=== PATIENT | female | born 2000 | race Caucasian/White ===

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

== ENCOUNTER 2021-01-10 21:33 | Emergency (ER) | payer OTHER, SELFPAY ==
[2021-01-10] VITALS (7 sets, daily range): BP systolic 134–154; BP diastolic 63–83; PULSE 77–110; RESP 16–28; TEMP 37.5–39.6; O2SAT 96–99; BMI 32.5
--- NOTE | 2021-01-10 22:02 | DI.RAD.S_ITS ---
PROCEDURE: XR CHEST 1V INDICATIONS: suspected sepsis TECHNIQUE: One view of the chest was acquired. COMPARISON: [facility], , CHEST 2 VIEW, 11/08/2010, 15:57. FINDINGS: Surgical changes and devices: None. Lungs and pleura: Minimal streaky bibasilar opacities without focal consolidation. No pleural effusions or pneumothorax. Mediastinum: Mediastinal contours appear normal. Heart size is normal. Bones and chest wall: No suspicious bony lesions. Overlying soft tissues appear unremarkable. IMPRESSION: Minimal streaky bibasilar opacities likely representing atelectasis. Early developing airspace disease not excluded. No focal consolidations. Dictated by: Keven Sandoval M.D. on 01/10/2021 at 22:16 Approved by: Keven Sandoval M.D. on 01/10/2021 at 22:17
[2021-01-10 22:28] LABS: COVID19 -Nasal RAPID Negative (Negative)
[2021-01-10] MEDS: KETOROLAC 30 MG/ML VIAL 15 MG IV (22:47)
[2021-01-10] MEDS: SODIUM CHLORIDE 0.9% 1,000 ML 1000 ML IV (22:47)
[2021-01-10 22:53] LABS: Hematocrit 37.3 % (36-46); Hemoglobin 12.8 g/dL (12.0-16.0); Mean Corpuscular HGB Conc 34.4 % (30-36); Mean Corpuscular Hemoglobin 29.3 PG (26-34); Mean Corpuscular Volume 85.1 fL (80-100); Platelet Count 135 X10^3/uL (150-400); Red Blood Cell Count 4.38 X10^6/uL (4.0-5.2); Red Cell Distribution Width 12.8 % (11.6-14.8); White Blood Cell Count 3.9 X10^3/uL (4.5-11.0)
[2021-01-10 22:55] LABS: Add Manual Diff / Slide Review YES
[2021-01-10 22:57] LABS: Alanine Aminotransferase 115 IU/L (<35); Albumin 3.9 g/dL (3.5-5.0); Albumin Globulin Ratio 1.3 (1.0-2.8); Alkaline Phosphatase 65 U/L (38-126); Aspartate Aminotransferase 195 IU/L (14-36); BUN Creatinine Ratio 9.6 (6-22); Bilirubin Total 0.6 mg/dL (0.2-1.3); Blood Urea Nitrogen 8 mg/dL (7-17); Calcium 8.7 mg/dL (8.4-10.2); Carbon Dioxide 26 mmol/L (22-32); Chloride 101 mmol/L (98-107); Estimated Glomerular Filt Rate > 60.0 mL/min (>60); Globulin 2.9 g/dL (1.7-4.1); Glucose 114 mg/dL (70-100); HEMOLYSIS < 15 (0-50); Lipase 46 U/L (23-300); Potassium 3.4 mmol/L (3.4-5.1); Sodium 133 mmol/L (137-145); Total Protein 6.8 g/dL (6.3-8.2)
[2021-01-10 22:58] LABS: Lactate (Lactic Acid) 1.2 mmol/L (0.7-2.1)
[2021-01-10 23:12] LABS: Neutrophils Absolute Manual 1716 /uL (3000-5900); RBC Morphology Normal Morphology; Total Cells Counted 100
[2021-01-10 23:14] LABS: Procalcitonin 0.41 ng/mL (<0.5)
--- NOTE | 2021-01-10 23:30 | ED_ITS ---
HPI - General Adult General Chief complaint: Fever Stated complaint: fever, headache, swollen eyes Time Seen by Provider: 01/10/21 22:43 Source: patient and family Mode of arrival: Ambulatory Limitations: no limitations History of Present Illness HPI narrative: 20-year-old woman with no significant medical history notes that 3 days ago she had the abrupt onset of fever to 103, noted that her eyes were puffy with injected sclera, she was diaphoretic had a sore throat with significant adenopathy complains of back pain body aches chest tightness when her eyes were burning she was feeling dizzy she notes that over the last couple of days she has been more sensitive to food. She is hungry but it tends to make her nauseated she has not vomited. She had diarrhea that was just watery today but then a formed stool later this evening. She describes being significantly weak. She notes a couple of weeks ago she had 2 days of dysuria but no recent dysuria or vaginal discharge type symptoms. She has never had similar findings and has not been around obviously ill people. Related Data Home Medications Medication Instructions Recorded Confirmed ibuprofen 200 mg tablet (Advil) 200 mg PO PRN #0 06/25/11 06/05/18 ferrous sulfate 325 mg (65 mg 325 mg PO DAILY tab 02/19/18 06/05/18 iron) tablet Allergies Allergy/AdvReac Type Severity Reaction Status Date / Time No Known Drug Allergies Allergy Verified 01/10/21 21:57 Review of Systems Review of Systems Narrative: Remainder of complete review of systems is otherwise unremarkable except for that included in the HPI. Patient History Social History Smoking Status: Never smoker Smoking Status: Never smoker alcohol intake frequency: holidays/special occasions only Substance Use Type: marijuana Exam Narrative Exam Narrative: General: Acutely hearing in mild distress. Able to give a complete and coherent history. Well-nourished well-developed HEENT: Moist mucous membranes, reactive pupils, cervical adenopathy but no nuchal rigidity. Eyelids are somewhat puffy and sclera are injected. Tympanic membranes are normal and tonsils are full with erythema and discharge no peritonsillar abscesses appreciated. Neck: Anterior cervical adenopathy Respiratory: Lungs are clear to auscultation, no wheezing no rales no rhonchi. Full and symmetrical air movement Cardiac: Regular rate and rhythm no murmurs no bruits Abdomen: Soft, nontender, good bowel tones, mild discomfort with flank palpation that no overt flank pain. Skin: Flushed but no rashes Neurologic: Grossly neurologically intact with no obvious asymmetries or abnormalities Extremities: No trauma, well perfused Psych: Cooperative, appropriate insight and affect Initial Vital Signs Initial Vital Signs: Vital Signs Temperature 103.2 F H 01/10/21 21:57 Pulse Rate 110 H 01/10/21 21:57 Respiratory Rate 22 01/10/21 21:57 Blood Pressure 154/83 H 01/10/21 21:57 Pulse Oximetry 97 01/10/21 21:57 Course Orders Ordered: ED Orders 01/10/21 22:00 COVID19 -Nasal swab/Pre-Proc Stat 01/10/21 22:02 XR chest 1V Stat EKG-12 Lead Stat RT Consult Eval and Treat Now 01/10/21 22:30 Complete Blood Count AUTO DIFF Stat Comprehensive Metabolic Panel Stat Lactate (Lactic Acid) Stat Lipase Stat Procalcitonin Stat 01/10/21 22:40 Blood Culture Stat 01/11/21 00:02 Throat Culture Stat 01/11/21 00:05 Hepatitis Acute Panel Stat Monotest Stat 01/11/21 00:52 Influenza A & B (PCR) Stat Discontinued Medications Acetaminophen (Acetaminophen 325 Mg Tablet) 975 mg PO NOW ONE Stop: 01/11/21 00:06 Last Admin: 01/11/21 00:26 Dose: 975 mg Documented by: SONG Sodium Chloride (Normal Saline 0.9%) 1,000 mls @ 1,000 mls/hr IV BOLUS ONE Stop: 01/10/21 23:01 Last Infusion: 01/10/21 23:44 Dose: 0 mls/hr Documented by: Admin: 01/10/21 22:47 Dose: 1,000 mls/hr Documented by: TYLER Sodium Chloride (Normal Saline 0.9%) 1,000 mls @ 1,000 mls/hr IV BOLUS ONE Stop: 01/11/21 01:03 Last Infusion: 01/11/21 01:06 Dose: 0 mls/hr Documented by: Admin: 01/11/21 00:26 Dose: 1,000 mls/hr Documented by: SONG Ketorolac Tromethamine (Ketorolac 30 Mg/Ml Vial) 15 mg IV NOW ONE Stop: 01/10/21 22:44 Last Admin: 01/10/21 22:47 Dose: 15 mg Documented by: TYLER Vital Signs Vital signs: Vital Signs - 8 hr 01/10/21 21:57 01/10/21 22:22 01/10/21 22:30 Temperature 103.2 F H Pulse Rate 110 H 102 H 89 Respiratory Rate 22 22 23 Blood Pressure 154/83 H Pulse Oximetry 97 97 97 01/10/21 22:40 01/10/21 23:00 01/10/21 23:30 Temperature 99.5 F Pulse Rate 90 87 77 Respiratory Rate 16 28 H 25 H Blood Pressure 141/75 H 139/69 134/63 Pulse Oximetry 99 96 98 01/10/21 23:43 01/11/21 00:00 01/11/21 00:12 Temperature 99.5 F Pulse Rate 86 101 H Respiratory Rate 22 25 H Blood Pressure 138/71 150/76 H Pulse Oximetry 97 97 01/11/21 00:26 01/11/21 00:30 Temperature 100.6 F H Pulse Rate 78 Respiratory Rate 22 Blood Pressure 131/68 Pulse Oximetry 97 Medical Decision Making Lab Data Result diagrams: 01/10/21 22:30 01/10/21 22:30 Labs: Lab Results 01/10/21 01/10/21 01/10/21 Range/Units 22:00 22:30 22:30 WBC 3.9 L (4.5-11.0) X10^3/uL RBC 4.38 (4.0-5.2) X10^6/uL Hgb 12.8 (12.0-16.0) g/dL Hct 37.3 (36-46) % MCV 85.1 (80-100) fL MCH 29.3 (26-34) PG MCHC 34.4 (30-36) % RDW 12.8 (11.6-14.8) % Plt Count 135 L (150-400) X10^3/uL Neut % (Auto) Not Reportable Lymph % (Auto) Not Reportable [place] % (Auto) Not Reportable Eos % (Auto) Not Reportable Baso % (Auto) Not Reportable Lymph # (Auto) Not Reportable [place] # (Auto) Not Reportable Baso # (Auto) Not Reportable Total Counted 100 Seg Neutrophils % 44.0 (38-70) % Lymphocytes % (Manual) 47.0 H (25-45) % Atypical Lymphs % 2.0 H ( - 0) % Monocytes % (Manual) 5.0 (2-11) % Eosinophils % (Manual) 1.0 L (2-4) % Basophils % (Manual) 1.0 (0-1) % Neutrophils # (Manual) 1716 L (5075-5832) /uL RBC Morphology Normal morphology Sodium 133 L (137-145) mmol/L Potassium 3.4 (3.4-5.1) mmol/L Chloride 101 (98-107) mmol/L Carbon Dioxide 26 (22-32) mmol/L BUN 8 (7-17) mg/dL Creatinine 0.83 (0.52-1.04) mg/dL Estimated GFR > 60.0 (>60) mL/min BUN/Creatinine Ratio 9.6 (6-22) Glucose 114 H (70-100) mg/dL Lactate (0.7-2.1) mmol/L Calcium 8.7 (8.4-10.2) mg/dL Total Bilirubin 0.6 (0.2-1.3) mg/dL AST 195 H (14-36) IU/L ALT 115 H (<35) IU/L Alkaline Phosphatase 65 (38-126) U/L Total Protein 6.8 (6.3-8.2) g/dL Albumin 3.9 (3.5-5.0) g/dL Globulin 2.9 (1.7-4.1) g/dL Albumin/Globulin Ratio 1.3 (1.0-2.8) Lipase 46 (23-300) U/L Procalcitonin 0.41 (<0.5) ng/mL SARS-CoV-2 (PCR) Negative (Negative) Monoscreen (Negative) Influenza A (RT-PCR) (NEGATIVE) Influenza B (RT-PCR) (NEGATIVE) 01/10/21 01/10/21 01/11/21 Range/Units 22:30 22:30 00:52 WBC (4.5-11.0) X10^3/uL RBC (4.0-5.2) X10^6/uL Hgb (12.0-16.0) g/dL Hct (36-46) % MCV (80-100) fL MCH (26-34) PG MCHC (30-36) % RDW (11.6-14.8) % Plt Count (150-400) X10^3/uL Neut % (Auto) Lymph % (Auto) [place] % (Auto) Eos % (Auto) Baso % (Auto) Lymph # (Auto) [place] # (Auto) Baso # (Auto) Total Counted Seg Neutrophils % (38-70) % Lymphocytes % (Manual) (25-45) % Atypical Lymphs % ( - 0) % Monocytes % (Manual) (2-11) % Eosinophils % (Manual) (2-4) % Basophils % (Manual) (0-1) % Neutrophils # (Manual) (4093-2416) /uL RBC Morphology Sodium (137-145) mmol/L Potassium (3.4-5.1) mmol/L Chloride (98-107) mmol/L Carbon Dioxide (22-32) mmol/L BUN (7-17) mg/dL Creatinine (0.52-1.04) mg/dL Estimated GFR (>60) mL/min BUN/Creatinine Ratio (6-22) Glucose (70-100) mg/dL Lactate 1.2 (0.7-2.1) mmol/L Calcium (8.4-10.2) mg/dL Total Bilirubin (0.2-1.3) mg/dL AST (14-36) IU/L ALT (<35) IU/L Alkaline Phosphatase (38-126) U/L Total Protein (6.3-8.2) g/dL Albumin (3.5-5.0) g/dL Globulin (1.7-4.1) g/dL Albumin/Globulin Ratio (1.0-2.8) Lipase (23-300) U/L Procalcitonin (<0.5) ng/mL SARS-CoV-2 (PCR) (Negative) Monoscreen Negative (Negative) Influenza A (RT-PCR) Flu a negative (NEGATIVE) Influenza B (RT-PCR) Flu b negative (NEGATIVE) Point of Care Testing Test Results Negative Rapid Strep A Negative Urine Dip Bedside Urine Glucose Negative Bedside Urine Bilirubin - Negative Bedside Urine Ketone - Negative Urine Specific [place] 1.01 Bedside Urine Occult Blood - Negative Bedside Urine pH 6 Bedside Urine Protein - Negative Bedside Urine Urobilinogen - Negative Bedside Urine Nitrite - Negative Bedside Urine Leukocytes - Negative Esterase Point of care testing: Point of Care Testing Test Results Negative Rapid Strep A Negative Urine Dip Bedside Urine Glucose Negative Bedside Urine Bilirubin - Negative Bedside Urine Ketone - Negative Urine Specific [place] 1.01 Bedside Urine Occult Blood - Negative Bedside Urine pH 6 Bedside Urine Protein - Negative Bedside Urine Urobilinogen - Negative Bedside Urine Nitrite - Negative Bedside Urine Leukocytes - Negative Esterase Imaging Data Chest x-ray: Radiologist's Impression: FINDINGS:? ? Surgical changes and devices:? None.? ? Lungs and pleura:? Minimal streaky bibasilar opacities without focal consolidation.? No pleural effusions or pneumothorax.? ? Mediastinum:? Mediastinal contours appear normal.? Heart size is normal.? ? Bones and chest wall:? No suspicious bony lesions.? Overlying soft tissues appear unremarkable.? ? IMPRESSION:? Minimal streaky bibasilar opacities likely representing atelectasis.? Early developing airspace disease not excluded.? No focal consolidations. ? ? Dictated by: Keven Sandoval M.D. on 01/10/2021 at 22:16? ?? MDM Narrative Medical decision making narrative: 20-year-old woman with fevers scleral injection general malaise but no localizing infection findings. She does not have COVID, mononucleosis, rapid strep was negative and throat culture is pending, urine shows no suggestion of bladder infection, she does not have abdominal pain to suggest significant intra-abdominal abnormality. Show slightly low white blood cell count with relatively normal differential, ALT and AST are slightly elevated at 195 and 115 respectively however she does not have corresponding hepatomegaly or hepatic tenderness. Rib bilirubin is unremarkable. Procalcitonin is low suggesting an absence of bacterial infection. In reviewing all labs, influenza swab was not sent. Will send this and will contact her if it turns out positive. Workup and all findings reviewed with patient and mother, questions are answered she is safe for home discharge At this time I do believe that she has a significant viral infection but is able to eat drink void and is not showing signs or symptoms of severe sepsis. Acute hepatitis panel is currently pending but at this time I believe she is safe for home discharge. Discharge Plan Departure Patient Disposition: Home Clinical Impression: Acute viral syndrome, Elevated LFTs Fever Qualifiers: Fever type: unspecified Qualified Code(s): R50.9 - Fever, unspecified Instructions: DI for Viral Syndrome Activity Restrictions/Additional Instructions: Thank you for coming in today You definitely look like you have a virus. Workup today showed no sign of COV ID, mononucleosis. Tests are currently pending for influenza as well as hepatitis. You will be contacted if these are positive. There is no sign of bacterial infection such as pneumonia, kidney infection bladder infection, appendicitis, cholecystitis or any skin infections. At this time it is a few to go home. Please continue to use ibuprofen and Tylenol to help the fevers and general miserableness. If you find that you are getting worse or develop new symptoms, please return to the ER and I am happy to re-evaluate Prescriptions: No Action ferrous sulfate 325 mg (65 mg iron) tablet 325 mg PO DAILY RF: 0 ibuprofen [Advil] 200 MG tablet 200 mg PO PRN Qty: 0 RF: 0 Stand Alone Forms: Work Release Note
[2021-01-11] VITALS: BP 138/71; PULSE 85; PULSE 86; RESP 22; O2SAT 96; O2SAT 97
[2021-01-11 00:12] VITALS: BP 150/76; PULSE 101; RESP 25; O2SAT 97
[2021-01-11 00:20] LABS: Monotest Negative (Negative)
[2021-01-11 00:26] VITALS: TEMP 38.1
[2021-01-11] MEDS: SODIUM CHLORIDE 0.9% 1,000 ML 1000 ML IV (00:26)
[2021-01-11] MEDS: ACETAMINOPHEN 325 MG TABLET 975 MG PO (00:26)
[2021-01-11 00:30] VITALS: BP 131/68; PULSE 78; RESP 22; O2SAT 97
[2021-01-11 01:35] LABS: Influenza A - CEPHEID Flu A NEGATIVE (NEGATIVE); Influenza B - CEPHEID Flu B NEGATIVE (NEGATIVE)
[2021-01-12 00:52] LABS: HBsAg Screen Negative (Negative); Hepatitis A Antibody IgM Negative (Negative); Hepatitis B Core Antibody IgM Negative (Negative); Hepatitis C Antibody <0.1 s/co ratio (0.0-0.9)
== END 2021-01-11 01:06 | disposition home or self-care (01) ==
PROVIDERS: Emergency Provider Emergency Medicine
DX: B34.9 Viral infection, unspecified (principal); R50.9 Fever, unspecified; R79.89 Other specified abnormal findings of blood chemistry; Z20.822 Contact with and (suspected) exposure to COVID-19
CPT/HCPCS: 36415; 71045; 80053; 80074; 81003; 81025; 83605; 83690; 84145; 85007; 85025; 86318; 87040; 87070; 87077; 87147; 87502; 87635; 87880; 93005; 96361; 96374; 99284; C9803; J1885

== ENCOUNTER 2021-01-13 16:37 | Observation (INO) | payer OTHER, SELFPAY ==
[2021-01-13] VITALS (22 sets, daily range): BP systolic 101–144; BP diastolic 56–84; PULSE 61–94; RESP 22; TEMP 36.7–38.3; O2SAT 94–100; BMI 32.5
[2021-01-13 17:26] LABS: COVID19 -Nasal RAPID Negative (Negative)
[2021-01-13] MEDS: ACETAMINOPHEN 325 MG TABLET 975 MG PO (18:40)
[2021-01-13] MEDS: SODIUM CHLORIDE 0.9% 1,000 ML 1000 ML IV (19:04)
[2021-01-13] MEDS: ONDANSETRON 4 MG/2 ML INJ IV (19:04)
[2021-01-13 19:09] LABS: Hematocrit 39.3 % (36-46); Hemoglobin 13.3 g/dL (12.0-16.0); Mean Corpuscular HGB Conc 33.8 % (30-36); Mean Corpuscular Hemoglobin 29.1 PG (26-34); Mean Corpuscular Volume 86.1 fL (80-100); Platelet Count 195 X10^3/uL (150-400); Red Blood Cell Count 4.57 X10^6/uL (4.0-5.2); Red Cell Distribution Width 13.4 % (11.6-14.8); White Blood Cell Count 7.5 X10^3/uL (4.5-11.0)
[2021-01-13 19:10] LABS: Add Manual Diff / Slide Review YES
[2021-01-13 19:20] LABS: Alanine Aminotransferase 400 IU/L (<35); Albumin 3.9 g/dL (3.5-5.0); Albumin Globulin Ratio 1.1 (1.0-2.8); Alkaline Phosphatase 228 U/L (38-126); Aspartate Aminotransferase 389 IU/L (14-36); BUN Creatinine Ratio 10.3 (6-22); Bilirubin Total 1.5 mg/dL (0.2-1.3); Blood Urea Nitrogen 7 mg/dL (7-17); Calcium 8.9 mg/dL (8.4-10.2); Carbon Dioxide 28 mmol/L (22-32); Chloride 100 mmol/L (98-107); Estimated Glomerular Filt Rate > 60.0 mL/min (>60); Globulin 3.5 g/dL (1.7-4.1); Glucose 106 mg/dL (70-100); HEMOLYSIS < 15 (0-50); Lipase 55 U/L (23-300); Potassium 3.8 mmol/L (3.4-5.1); Sodium 135 mmol/L (137-145); Total Protein 7.4 g/dL (6.3-8.2)
--- NOTE | 2021-01-13 19:21 | DI.CT.S_ITS ---
PROCEDURE: CT ABDOMEN PELVIS W CON INDICATIONS: Abdominal pain TECHNIQUE: After the administration of intravenous contrast, axial sections acquired from the lung bases to the pubic symphysis. Coronal and sagittal reformats were performed. For radiation dose reduction, the following was used: automated exposure control, adjustment of mA and/or kV according to patient size. COMPARISON: [facility], CT, CT ABDOMEN PELVIS W CON, 06/05/2018, 20:21. FINDINGS: Image quality: Excellent. Lung bases: There is mild dependent atelectasis bilaterally. Heart: No significant findings. ABDOMEN: Liver: There is mild hypoattenuation of the liver consistent with mild fatty infiltration with relative sparing along the gallbladder fossa. Gallbladder: Unremarkable. Biliary ducts: Unremarkable. Pancreas: Unremarkable. Spleen: Unremarkable. Adrenal Glands: Unremarkable. Kidneys and Ureters: Unremarkable. Stomach and Bowel: There is mild segmental bowel wall thickening and enhancement involving the proximal duodenum with associated mild fat stranding consistent with a duodenitis. The remainder of the small and large bowel demonstrate normal caliber and wall thickness. The appendix is normal in appearance. There is colonic diverticulosis without acute diverticulitis. Peritoneum: There is minimal free fluid along the duodenum tracking inferiorly along the right anterior pararenal space. Findings are likely reactive. A small amount of free fluid is also demonstrated in the pelvis which appears within physiologic limits. No free air. Ventral Wall: No hernias. Abdominal Nodes: No retroperitoneal or mesenteric adenopathy by size criteria. Vessels: Aorta and inferior vena cava are normal in size. PELVIS: Pelvic Organs: The uterus and ovaries appear within normal size limits. Bladder: Unremarkable. Pelvic Nodes: No enlarged lymph nodes. Miscellaneous: No hernias are seen. Bones: Unremarkable. IMPRESSION: 1. Mild segmental bowel wall thickening and enhancement involving the proximal duodenum with associated mild fat stranding and minimal free fluid. Findings are consistent with a nonspecific duodenitis, likely infectious or inflammatory. No free air identified. Dictated by: Jace Chen M.D. on 01/13/2021 at 20:36 Approved by: Jace Chen M.D. on 01/13/2021 at 20:40
--- NOTE | 2021-01-13 19:21 | DI.RAD.S_ITS ---
PROCEDURE: XR CHEST 1V INDICATIONS: Pain TECHNIQUE: One view of the chest was acquired. COMPARISON: [facility], CR, XR CHEST 1V, 01/10/2021, 22:06. FINDINGS: Surgical changes and devices: None. Lungs and pleura: Lungs are clear. No pleural effusions or pneumothorax. Mediastinum: Mediastinal contours appear normal. Heart size is normal. Bones and chest wall: No suspicious bony lesions. Overlying soft tissues appear unremarkable. IMPRESSION: 1. No acute cardiopulmonary disease. Dictated by: Jace Chen M.D. on 01/13/2021 at 20:29 Approved by: Jace Chen M.D. on 01/13/2021 at 20:30
--- NOTE | 2021-01-13 19:29 | ED_ITS ---
HPI - Fever <Eliceo Nichols PA-C - Last Filed: 01/13/21 20:04> General Chief Complaint: Fever Stated Complaint: SORE THROAT STOMACH PAIN & HIGH FEVER Time Seen by Provider: 01/13/21 18:18 Source: patient Mode of arrival: Family Vehicle Limitations: no limitations History of Present Illness HPI Narrative: Patient is a 20-year-old female presenting to the emergency department today with her mother for an evaluation of a fever that began 6 days ago. Patient states that she awoke 6 days ago with facial and eye swelling, and she notes that she had since developed symptoms of a T-max fever of 104.8 F, generalized abdominal pain, chest pain, nonbloody non bilious vomiting, sore throat, fatigue, and low back pain. Patient was seen in the emergency department on 01/10/2021 for her symptoms. Chest x-ray was obtained along with a CBC, CMP, lactate, Monospot, urine dipstick, test, blood cultures, his throat culture, rapid strep test, and COVID test. Patient was ultimately di agnosed with Acute viral syndrome and discharged home. Patient returns today due to worsening sore throat, fatigue, and abdominal pain. Patient denies diarrhea, dysuria, constipation, ear pain, changes in vision, cough. No other concerns voiced at this time. Related Data Home Medications Medication Instructions Recorded Confirmed ibuprofen 200 mg tablet (Advil) 200 mg PO PRN #0 06/25/11 06/05/18 ferrous sulfate 325 mg (65 mg 325 mg PO DAILY tab 02/19/18 06/05/18 iron) tablet Allergies Allergy/AdvReac Type Severity Reaction Status Date / Time No Known Drug Allergies Allergy Verified 01/13/21 16:55 Review of Systems <Eliceo Nichols PA-C - Last Filed: 01/13/21 20:04> Constitutional Constitutional: Denies chills, Reports fever(s), Reports lethargy and Reports weakness Eyes Eyes: Denies change in vision, Denies eye discharge, Denies irritation, Denies loss of vision and Reports other (Conjunctival injection) ENT Ears, Nose, Mouth, and Throat: Denies change in voice, Denies otalgia, Denies facial pain, Denies neck pain and Reports sore throat Cardiovascular Cardiovascular: Reports chest pain, Denies irregular heart rhythm, Denies lightheadedness, Denies palpitations, Denies dyspnea, Denies dyspnea on exertion and Denies orthopnea Respiratory Respiratory: Denies cough, Denies dyspnea, Denies dyspnea on exertion and Denies wheezing Gastrointestinal Gastrointestinal: Reports abdominal pain, Denies change in bowel habits, Denies diarrhea, Reports nausea and Reports vomiting Genitourinary Genitourinary: Denies abnormal menses, Denies hematuria, Denies dysuria and Denies dysuria Musculoskeletal Musculoskeletal: Denies neck pain Integumentary/Breasts Skin/Breast: Denies pruritus, Denies erythema, Denies rash and Denies wounds Neurologic Neurologic: Denies loss of vision and Reports weakness Endocrine Endocrine: Denies palpitations Allergic/Immunologic Allergic/Immunologic: Denies wheezing Patient History <Eliceo Nichols PA-C - Last Filed: 01/13/21 20:04> Social History Smoking Status: Never smoker Smoking Status: Never smoker alcohol intake frequency: holidays/special occasions only Substance Use Type: marijuana Exam <Eliceo Nichols PA-C - Last Filed: 01/13/21 20:04> Narrative Exam Narrative: GENERAL: 20 year old patient appears stated age. Well-developed patient, in mild distress. HEAD: Atraumatic. Normocephalic. EYES: Pupils equal round and reactive. Extraocular motions intact. No scleral icterus. Bilateral scleral injection noted. ENT: Nose without bleeding, purulent drainage. Throat is erythematous with tonsillar exudates. Airway patent. NECK: Trachea midline. Non tender CARDIOVASCULAR: Regular rate and rhythm without murmurs, gallops, or rubs. RESPIRATORY: Scattered crackles appreciated throughout the bilateral lobes without auscultation. Breath sounds equal bilaterally. GASTROINTESTINAL: Abdomen soft, nondistended. Tenderness to palpation appreciated throughout all 4 quadrants, with noticeable tenderness to palpation throughout the right lower quadrant. EXTREMITIES: No edema or joint tenderness. BACK: Nontender without deformity or crepitance. No flank tenderness. NEURO: AOx3. SKIN: No rash or erythema of visible areas Initial Vital Signs Initial Vital Signs: Vital Signs Temperature 100.9 F H 01/13/21 16:46 Pulse Rate 94 H 01/13/21 16:46 Respiratory Rate 22 01/13/21 16:46 Blood Pressure 134/84 01/13/21 16:46 Pulse Oximetry 99 01/13/21 16:46 <Anaya Keys DO - Last Filed: 01/14/21 03:10> Narrative Exam Narrative: GENERAL: 20 year old patient appears stated age. Well-developed patient, in mild distress. HEAD: Atraumatic. Normocephalic. EYES: Pupils equal round and reactive. Extraocular motions intact. No scleral icterus. Bilateral scleral injection noted as well as subconjunctival hemorrhage bilaterally the lateral. No corneal involvement. ENT: Nose without bleeding, purulent drainage. Throat is erythematous with tonsillar exudates. Airway patent. NECK: Trachea midline. Non tender CARDIOVASCULAR: Regular rate and rhythm without murmurs, gallops, or rubs. RESPIRATORY: Scattered crackles appreciated throughout the bilateral lobes without auscultation. Breath sounds equal bilaterally. GASTROINTESTINAL: Abdomen soft, nondistended. Tenderness to palpation appreciated throughout all 4 quadrants, with noticeable tenderness to palpation throughout the right lower quadrant. EXTREMITIES: No edema or joint tenderness. BACK: Nontender without deformity or crepitance. No flank tenderness. NEURO: AOx3. SKIN: No rash or erythema of visible areas Initial Vital Signs Initial Vital Signs: Vital Signs Temperature 100.9 F H 01/13/21 16:46 Pulse Rate 94 H 01/13/21 16:46 Respiratory Rate 22 01/13/21 16:46 Blood Pressure 134/84 01/13/21 16:46 Pulse Oximetry 99 01/13/21 16:46 Course <Eliceo Nichols PA-C - Last Filed: 01/13/21 20:04> Course Course Narrative: Patient is a 20-year-old female presenting to the emergency department today with her mother for an evaluation of a fever that began 6 days ago. Orders Ordered: ED Orders 01/13/21 18:50 Complete Blood Count AUTO DIFF Stat Comprehensive Metabolic Panel Stat D Dimer Stat HCG Quantitative /Beta subunit Stat HIV 1 & 2 Ab/Ag 4th Gen Combo Stat Lactate (Lactic Acid) Stat Lipase Stat Monotest Stat Pathologist Review (for CBC) Stat Procalcitonin Stat 01/13/21 18:53 EKG-12 Lead Stat 01/13/21 19:21 CT abdomen pelvis w con Stat XR chest 1V Stat 01/13/21 19:56 Blood Culture Stat 01/13/21 20:00 US abdomen complete Stat 01/13/21 20:30 Urinalysis and Microscopic Stat Urine Culture Stat 01/13/21 22:29 Respiratory Panel (Film Array) Stat 01/13/21 23:21 Education, smoking cessation ONGOING 01/14/21 05:00 Basic Metabolic Panel Routine Complete Blood Count AUTO DIFF Routine Hepatic (Liver) Panel Routine Acetaminophen (Acetaminophen 325 Mg Tablet) 650 mg PO Q6HR PRN PRN Reason: Fever/Mild Pain (1-3) Al Hydrox/Mg Hydrox/Simethicone (Mag Hydrox/Alum/Simeth 30 Ml Udc) 30 ml PO Q6H PRN PRN Reason: Dyspepsia Lactated Ringer's (Lactated Ringers) 1,000 mls @ 150 mls/hr IV CONT [facility] Last Admin: 01/13/21 23:56 Dose: 150 mls/hr Documented by: VANDANA Ceftriaxone Sodium 2,000 mg/ (Sodium Chloride) 100 mls @ 200 mls/hr IV DAILY [facility] Last Infusion: 01/14/21 01:11 Dose: 0 mls/hr Documented by: Admin: 01/13/21 23:56 Dose: 200 mls/hr Documented by: VANDANA Ibuprofen (Ibuprofen 600 Mg Tablet) 600 mg PO Q6HR PRN PRN Reason: Fever/Mild Pain (1-3) Ondansetron HCl (Ondansetron 4 Mg/2 Ml Inj) 4 mg IV Q8HR PRN PRN Reason: Nausea And Vomiting Last Admin: 01/14/21 00:00 Dose: 4 mg Documented by: VANDANA Pantoprazole Sodium (Pantoprazole 40 Mg Vial) 40 mg IV DAILY [facility] Last Admin: 01/13/21 23:56 Dose: 40 mg Documented by: VANDANA Discontinued Medications Acetaminophen (Acetaminophen 325 Mg Tablet) 975 mg PO NOW ONE Stop: 01/13/21 18:19 Last Admin: 01/13/21 18:40 Dose: 975 mg Documented by: VANDANA Sodium Chloride (Normal Saline 0.9%) 1,000 mls @ 1,000 mls/hr IV BOLUS ONE Stop: 01/13/21 19:56 Last Infusion: 01/13/21 21:23 Dose: 0 mls/hr Documented by: Admin: 01/13/21 19:04 Dose: 1,000 mls/hr Documented by: VANDANA Piperacillin Sod/Tazobactam (Sod 4.5 gm/ Sodium Chloride) 100 mls @ 200 mls/hr IV NOW ONE Stop: 01/13/21 19:58 Last Infusion: 01/13/21 21:02 Dose: 0 mls/hr Documented by: Admin: 01/13/21 20:01 Dose: 200 mls/hr Documented by: VANDANA Sodium Chloride (Normal Saline 0.9%) 1,641 mls @ 547 mls/hr 30 ml/kg infuse over 3 hr (1641 ml) IV NOW ONE Stop: 01/13/21 23:31 Last Infusion: 01/13/21 23:47 Dose: 0 mls/hr Documented by: Admin: 01/13/21 21:23 Dose: 547 mls/hr Documented by: VANDANA Ketorolac Tromethamine (Ketorolac 30 Mg/Ml Vial) 30 mg IV NOW ONE Stop: 01/13/21 19:28 Last Admin: 01/13/21 19:58 Dose: 30 mg Documented by: VANDANA Morphine Sulfate (Morphine 4 Mg/Ml Inj) 4 mg IV NOW ONE Stop: 01/13/21 20:46 Last Admin: 01/13/21 20:50 Dose: 4 mg Documented by: VANDANA Ondansetron HCl (Ondansetron 4 Mg/2 Ml Inj) 4 mg IV NOW ONE Stop: 01/13/21 19:01 Last Admin: 01/13/21 19:04 Dose: 4 mg Documented by: VANDAAN Vital Signs Vital signs: Vital Signs - 8 hr 01/13/21 19:23 01/13/21 19:45 01/13/21 20:00 Temperature Pulse Rate 85 88 73 Blood Pressure 133/73 123/63 Pulse Oximetry 97 98 97 01/13/21 20:30 01/13/21 20:45 01/13/21 20:46 Temperature Pulse Rate 79 83 80 Blood Pressure 101/56 L 101/56 L Pulse Oximetry 94 96 97 01/13/21 21:00 01/13/21 21:01 01/13/21 21:30 Temperature Pulse Rate 67 69 61 Blood Pressure 122/61 119/66 Pulse Oximetry 96 97 94 01/13/21 21:52 01/13/21 22:00 Temperature 98.1 F Pulse Rate 67 Blood Pressure 123/60 Pulse Oximetry 98 <Anaya Arteagavaleri, DO - Last Filed: 01/14/21 03:10> Orders Ordered: ED Orders 01/13/21 18:50 Complete Blood Count AUTO DIFF Stat Comprehensive Metabolic Panel Stat D Dimer Stat HCG Quantitative /Beta subunit Stat HIV 1 & 2 Ab/Ag 4th Gen Combo Stat Lactate (Lactic Acid) Stat Lipase Stat Monotest Stat Pathologist Review (for CBC) Stat Procalcitonin Stat 01/13/21 18:53 EKG-12 Lead Stat 01/13/21 19:21 CT abdomen pelvis w con Stat XR chest 1V Stat 01/13/21 19:56 Blood Culture Stat 01/13/21 20:00 US abdomen complete Stat 01/13/21 20:30 Urinalysis and Microscopic Stat Urine Culture Stat 01/13/21 22:29 Respiratory Panel (Film Array) Stat 01/13/21 23:21 Education, smoking cessation ONGOING 01/14/21 05:00 Basic Metabolic Panel Routine Complete Blood Count AUTO DIFF Routine Hepatic (Liver) Panel Routine Acetaminophen (Acetaminophen 325 Mg Tablet) 650 mg PO Q6HR PRN PRN Reason: Fever/Mild Pain (1-3) Al Hydrox/Mg Hydrox/Simethicone (Mag Hydrox/Alum/Simeth 30 Ml Udc) 30 ml PO Q6H PRN PRN Reason: Dyspepsia Lactated Ringer's (Lactated Ringers) 1,000 mls @ 150 mls/hr IV CONT [facility] Last Admin: 01/13/21 23:56 Dose: 150 mls/hr Documented by: VANDANA Ceftriaxone Sodium 2,000 mg/ (Sodium Chloride) 100 mls @ 200 mls/hr IV DAILY [facility] Last Infusion: 01/14/21 01:11 Dose: 0 mls/hr Documented by: Admin: 01/13/21 23:56 Dose: 200 mls/hr Documented by: VANDANA Ibuprofen (Ibuprofen 600 Mg Tablet) 600 mg PO Q6HR PRN PRN Reason: Fever/Mild Pain (1-3) Ondansetron HCl (Ondansetron 4 Mg/2 Ml Inj) 4 mg IV Q8HR PRN PRN Reason: Nausea And Vomiting Last Admin: 01/14/21 00:00 Dose: 4 mg Documented by: VANDANA Pantoprazole Sodium (Pantoprazole 40 Mg Vial) 40 mg IV DAILY [facility] Last Admin: 01/13/21 23:56 Dose: 40 mg Documented by: VANDANA Discontinued Medications Acetaminophen (Acetaminophen 325 Mg Tablet) 975 mg PO NOW ONE Stop: 01/13/21 18:19 Last Admin: 01/13/21 18:40 Dose: 975 mg Documented by: VANDANA Sodium Chloride (Normal Saline 0.9%) 1,000 mls @ 1,000 mls/hr IV BOLUS ONE Stop: 01/13/21 19:56 Last Infusion: 01/13/21 21:23 Dose: 0 mls/hr Documented by: Admin: 01/13/21 19:04 Dose: 1,000 mls/hr Documented by: VANDANA Piperacillin Sod/Tazobactam (Sod 4.5 gm/ Sodium Chloride) 100 mls @ 200 mls/hr IV NOW ONE Stop: 01/13/21 19:58 Last Infusion: 01/13/21 21:02 Dose: 0 mls/hr Documented by: Admin: 01/13/21 20:01 Dose: 200 mls/hr Documented by: VANDANA Sodium Chloride (Normal Saline 0.9%) 1,641 mls @ 547 mls/hr 30 ml/kg infuse over 3 hr (1641 ml) IV NOW ONE Stop: 01/13/21 23:31 Last Infusion: 01/13/21 23:47 Dose: 0 mls/hr Documented by: Admin: 01/13/21 21:23 Dose: 547 mls/hr Documented by: VANDANA Ketorolac Tromethamine (Ketorolac 30 Mg/Ml Vial) 30 mg IV NOW ONE Stop: 01/13/21 19:28 Last Admin: 01/13/21 19:58 Dose: 30 mg Documented by: VANDANA Morphine Sulfate (Morphine 4 Mg/Ml Inj) 4 mg IV NOW ONE Stop: 01/13/21 20:46 Last Admin: 01/13/21 20:50 Dose: 4 mg Documented by: VANDANA Ondansetron HCl (Ondansetron 4 Mg/2 Ml Inj) 4 mg IV NOW ONE Stop: 01/13/21 19:01 Last Admin: 01/13/21 19:04 Dose: 4 mg Documented by: RLAZANI Reevaluation(s) Reevaluation #1: Patient signed out to myself by GELY Nichols. Patient case had already been discussed. Patient has fever, abdominal pain in the setting with was seen. Patient 3 days ago had leukopenia with slightly low platelets. LFTs were mildly elevated at that time at 195 for AST and 115 for ALT and of since more than doubled with a positive bilirubin today and alk-phos which is elevated and a negative lipase. Patient's lactate is normal. Blood cultures have been obtained. Medicare urine and pending. Patient has had CT abdomen pelvis and ultrasound was included. These are pending as well as chest x-ray. She did have a positive throat culture for strep C but this seems an unlikely cause of her other symptoms currently. She was covered with Zosyn IV and has received IV fluids, Toradol, Zofran and Tylenol department. Time: 20:30 Consultations Consultation #1: Dr. Hernandez, patient's labs, CT findings which show some duodenitis and hypoechoic area on her ultrasound but not visualized on her CT with no other clear causes for her symptoms and fever. She suspects potentially more viral cause. She does not feel patient's surgical candidate but does feel an MRI to evaluate the hypokalemic area in the morning would be appropriate. Consultation #2: Dr. Sprague, accepts for admission. We added respiratory panel, Monospot was negative but was repeated today. She has hepatitis screen which negative so far. She is covered with Zosyn does have a positive strep C culture on her throat culture from several days ago. [place] comfortable with this antibiotic choice. Cultures are pending. And EBV testing was also sent. Dr. Sprague saw patient in the emergency department where patient is boarding. Vital Signs Vital signs: Vital Signs - 8 hr 01/13/21 19:23 01/13/21 19:45 01/13/21 20:00 Temperature Pulse Rate 85 88 73 Blood Pressure 133/73 123/63 Pulse Oximetry 97 98 97 01/13/21 20:30 01/13/21 20:45 01/13/21 20:46 Temperature Pulse Rate 79 83 80 Blood Pressure 101/56 L 101/56 L Pulse Oximetry 94 96 97 01/13/21 21:00 01/13/21 21:01 01/13/21 21:30 Temperature Pulse Rate 67 69 61 Blood Pressure 122/61 119/66 Pulse Oximetry 96 97 94 01/13/21 21:52 01/13/21 22:00 Temperature 98.1 F Pulse Rate 67 Blood Pressure 123/60 Pulse Oximetry 98 MDM - Fever <Eliceo Nichols PA-C - Last Filed: 01/13/21 20:04> Lab Data Result diagrams: 01/13/21 18:50 01/13/21 18:50 Labs: Lab Results 01/13/21 01/13/21 01/13/21 Range/Units 16:56 18:50 18:50 WBC 7.5 (4.5-11.0) X10^3/uL RBC 4.57 (4.0-5.2) X10^6/uL Hgb 13.3 (12.0-16.0) g/dL Hct 39.3 (36-46) % MCV 86.1 (80-100) fL MCH 29.1 (26-34) PG MCHC 33.8 (30-36) % RDW 13.4 (11.6-14.8) % Plt Count 195 (150-400) X10^3/uL Neut % (Auto) Not Reportable Lymph % (Auto) Not Reportable [place] % (Auto) Not Reportable Eos % (Auto) Not Reportable Baso % (Auto) Not Reportable Lymph # (Auto) Not Reportable [place] # (Auto) Not Reportable Baso # (Auto) Not Reportable Total Counted 100 Seg Neutrophils % 29.0 L (38-70) % Band Neutrophils % 5.0 (3-7) % Lymphocytes % (Manual) 18.0 L (25-45) % Atypical Lymphs % 44.0 H ( - 0) % Monocytes % (Manual) 2.0 (2-11) % Eosinophils % (Manual) 2.0 (2-4) % Neutrophils # (Manual) 2550 L (0554-5235) /uL RBC Morphology Normal morphology D-Dimer (<230) ng/mL Sodium 135 L (137-145) mmol/L Potassium 3.8 (3.4-5.1) mmol/L Chloride 100 (98-107) mmol/L Carbon Dioxide 28 (22-32) mmol/L BUN 7 (7-17) mg/dL Creatinine 0.68 (0.52-1.04) mg/dL Estimated GFR > 60.0 (>60) mL/min BUN/Creatinine Ratio 10.3 (6-22) Glucose 106 H (70-100) mg/dL Lactate (0.7-2.1) mmol/L Calcium 8.9 (8.4-10.2) mg/dL Total Bilirubin 1.5 H (0.2-1.3) mg/dL AST 389 H (14-36) IU/L ALT 400 H (<35) IU/L Alkaline Phosphatase 228 H D (38-126) U/L Total Protein 7.4 (6.3-8.2) g/dL Albumin 3.9 (3.5-5.0) g/dL Globulin 3.5 (1.7-4.1) g/dL Albumin/Globulin Ratio 1.1 (1.0-2.8) Lipase 55 (23-300) U/L Procalcitonin (<0.5) ng/mL HCG, Quant mIU/mL Urine Color Urine Appearance Urine pH (4.5-8.0) Ur Specific [place] (1.000-1.035) Urine Protein (Negative) Urine Glucose (UA) (Negative) g/dL Urine Ketones (NEGATIVE) Urine Occult Blood (Negative) Urine Nitrate (Negative) Urine Bilirubin (NEGATIVE) Urine Urobilinogen (0.2) E.U./dL Ur Leukocyte Esterase (NEGATIVE) Urine RBC (0-5/HPF) Urine WBC (0-5/HPF) Urine Bacteria (None) Ur Culture Indicated? Chlamy pneumoniae PCR (Not Detect) Adenovirus (PCR) (Not Detect) B. pertussis DNA (PCR) (Not Detecte) B.parapertussis DNA PCR (Not Detecte) Coronavirus OC43 (PCR) (Not Detect) Coronavirus HKU1 (PCR) (Not Detect) Coronavirus 229E (PCR) (Not Detect) SARS-CoV-2 (PCR) Negative (Negative) Coronavirus NL63 (PCR) (Not Detect) Monoscreen (Negative) Human Metapneumovir PCR (Not Detect) Influenza Type A (PCR) (Not Detect) Influenza Type B (PCR) (Not Detect) M. pneumoniae (PCR) (Not Detect) Parainfluenza 1 (PCR) (Not Detect) Parainfluenza 2 (PCR) (Not Detect) Parainfluenza 3 (PCR) (Not Detect) Parainfluenza 4 (PCR) (Not Detect) RSV (PCR) (Not Detect) Entero/Rhino (PCR) (Not Detect) 01/13/21 01/13/21 01/13/21 Range/Units 18:50 18:50 18:50 WBC (4.5-11.0) X10^3/uL RBC (4.0-5.2) X10^6/uL Hgb (12.0-16.0) g/dL Hct (36-46) % MCV (80-100) fL MCH (26-34) PG MCHC (30-36) % RDW (11.6-14.8) % Plt Count (150-400) X10^3/uL Neut % (Auto) Lymph % (Auto) [place] % (Auto) Eos % (Auto) Baso % (Auto) Lymph # (Auto) [place] # (Auto) Baso # (Auto) Total Counted Seg Neutrophils % (38-70) % Band Neutrophils % (3-7) % Lymphocytes % (Manual) (25-45) % Atypical Lymphs % ( - 0) % Monocytes % (Manual) (2-11) % Eosinophils % (Manual) (2-4) % Neutrophils # (Manual) (4419-2880) /uL RBC Morphology D-Dimer (<230) ng/mL Sodium (137-145) mmol/L Potassium (3.4-5.1) mmol/L Chloride (98-107) mmol/L Carbon Dioxide (22-32) mmol/L BUN (7-17) mg/dL Creatinine (0.52-1.04) mg/dL Estimated GFR (>60) mL/min BUN/Creatinine Ratio (6-22) Glucose (70-100) mg/dL Lactate 1.2 (0.7-2.1) mmol/L Calcium (8.4-10.2) mg/dL Total Bilirubin (0.2-1.3) mg/dL AST (14-36) IU/L ALT (<35) IU/L Alkaline Phosphatase (38-126) U/L Total Protein (6.3-8.2) g/dL Albumin (3.5-5.0) g/dL Globulin (1.7-4.1) g/dL Albumin/Globulin Ratio (1.0-2.8) Lipase (23-300) U/L Procalcitonin 0.36 (<0.5) ng/mL HCG, Quant < 2.4 mIU/mL Urine Color Urine Appearance Urine pH (4.5-8.0) Ur Specific [place] (1.000-1.035) Urine Protein (Negative) Urine Glucose (UA) (Negative) g/dL Urine Ketones (NEGATIVE) Urine Occult Blood (Negative) Urine Nitrate (Negative) Urine Bilirubin (NEGATIVE) Urine Urobilinogen (0.2) E.U./dL Ur Leukocyte Esterase (NEGATIVE) Urine RBC (0-5/HPF) Urine WBC (0-5/HPF) Urine Bacteria (None) Ur Culture Indicated? Chlamy pneumoniae PCR (Not Detect) Adenovirus (PCR) (Not Detect) B. pertussis DNA (PCR) (Not Detecte) B.parapertussis DNA PCR (Not Detecte) Coronavirus OC43 (PCR) (Not Detect) Coronavirus HKU1 (PCR) (Not Detect) Coronavirus 229E (PCR) (Not Detect) SARS-CoV-2 (PCR) (Negative) Coronavirus NL63 (PCR) (Not Detect) Monoscreen (Negative) Human Metapneumovir PCR (Not Detect) Influenza Type A (PCR) (Not Detect) Influenza Type B (PCR) (Not Detect) M. pneumoniae (PCR) (Not Detect) Parainfluenza 1 (PCR) (Not Detect) Parainfluenza 2 (PCR) (Not Detect) Parainfluenza 3 (PCR) (Not Detect) Parainfluenza 4 (PCR) (Not Detect) RSV (PCR) (Not Detect) Entero/Rhino (PCR) (Not Detect) 01/13/21 01/13/21 01/13/21 Range/Units 18:50 18:50 20:30 WBC (4.5-11.0) X10^3/uL RBC (4.0-5.2) X10^6/uL Hgb (12.0-16.0) g/dL Hct (36-46) % MCV (80-100) fL MCH (26-34) PG MCHC (30-36) % RDW (11.6-14.8) % Plt Count (150-400) X10^3/uL Neut % (Auto) Lymph % (Auto) [place] % (Auto) Eos % (Auto) Baso % (Auto) Lymph # (Auto) [place] # (Auto) Baso # (Auto) Total Counted Seg Neutrophils % (38-70) % Band Neutrophils % (3-7) % Lymphocytes % (Manual) (25-45) % Atypical Lymphs % ( - 0) % Monocytes % (Manual) (2-11) % Eosinophils % (Manual) (2-4) % Neutrophils # (Manual) (7080-5273) /uL RBC Morphology D-Dimer 2661 H (<230) ng/mL Sodium (137-145) mmol/L Potassium (3.4-5.1) mmol/L Chloride (98-107) mmol/L Carbon Dioxide (22-32) mmol/L BUN (7-17) mg/dL Creatinine (0.52-1.04) mg/dL Estimated GFR (>60) mL/min BUN/Creatinine Ratio (6-22) Glucose (70-100) mg/dL Lactate (0.7-2.1) mmol/L Calcium (8.4-10.2) mg/dL Total Bilirubin (0.2-1.3) mg/dL AST (14-36) IU/L ALT (<35) IU/L Alkaline Phosphatase (38-126) U/L Total Protein (6.3-8.2) g/dL Albumin (3.5-5.0) g/dL Globulin (1.7-4.1) g/dL Albumin/Globulin Ratio (1.0-2.8) Lipase (23-300) U/L Procalcitonin (<0.5) ng/mL HCG, Quant mIU/mL Urine Color Yellow Urine Appearance Clear Urine pH 6.5 (4.5-8.0) Ur Specific [place] <=1.005 (1.000-1.035) Urine Protein Negative (Negative) Urine Glucose (UA) Negative (Negative) g/dL Urine Ketones Negative (NEGATIVE) Urine Occult Blood Negative (Negative) Urine Nitrate Negative (Negative) Urine Bilirubin Negative (NEGATIVE) Urine Urobilinogen 0.2 (0.2) E.U./dL Ur Leukocyte Esterase Trace H (NEGATIVE) Urine RBC None seen (0-5/HPF) Urine WBC None seen (0-5/HPF) Urine Bacteria Occasional (0-1) (None) Ur Culture Indicated? Specimen cultured Chlamy pneumoniae PCR (Not Detect) Adenovirus (PCR) (Not Detect) B. pertussis DNA (PCR) (Not Detecte) B.parapertussis DNA PCR (Not Detecte) Coronavirus OC43 (PCR) (Not Detect) Coronavirus HKU1 (PCR) (Not Detect) Coronavirus 229E (PCR) (Not Detect) SARS-CoV-2 (PCR) (Negative) Coronavirus NL63 (PCR) (Not Detect) Monoscreen Negative (Negative) Human Metapneumovir PCR (Not Detect) Influenza Type A (PCR) (Not Detect) Influenza Type B (PCR) (Not Detect) M. pneumoniae (PCR) (Not Detect) Parainfluenza 1 (PCR) (Not Detect) Parainfluenza 2 (PCR) (Not Detect) Parainfluenza 3 (PCR) (Not Detect) Parainfluenza 4 (PCR) (Not Detect) RSV (PCR) (Not Detect) Entero/Rhino (PCR) (Not Detect) 01/13/21 Range/Units 22:29 WBC (4.5-11.0) X10^3/uL RBC (4.0-5.2) X10^6/uL Hgb (12.0-16.0) g/dL Hct (36-46) % MCV (80-100) fL MCH (26-34) PG MCHC (30-36) % RDW (11.6-14.8) % Plt Count (150-400) X10^3/uL Neut % (Auto) Lymph % (Auto) [place] % (Auto) Eos % (Auto) Baso % (Auto) Lymph # (Auto) [place] # (Auto) Baso # (Auto) Total Counted Seg Neutrophils % (38-70) % Band Neutrophils % (3-7) % Lymphocytes % (Manual) (25-45) % Atypical Lymphs % ( - 0) % Monocytes % (Manual) (2-11) % Eosinophils % (Manual) (2-4) % Neutrophils # (Manual) (6581-1726) /uL RBC Morphology D-Dimer (<230) ng/mL Sodium (137-145) mmol/L Potassium (3.4-5.1) mmol/L Chloride (98-107) mmol/L Carbon Dioxide (22-32) mmol/L BUN (7-17) mg/dL Creatinine (0.52-1.04) mg/dL Estimated GFR (>60) mL/min BUN/Creatinine Ratio (6-22) Glucose (70-100) mg/dL Lactate (0.7-2.1) mmol/L Calcium (8.4-10.2) mg/dL Total Bilirubin (0.2-1.3) mg/dL AST (14-36) IU/L ALT (<35) IU/L Alkaline Phosphatase (38-126) U/L Total Protein (6.3-8.2) g/dL Albumin (3.5-5.0) g/dL Globulin (1.7-4.1) g/dL Albumin/Globulin Ratio (1.0-2.8) Lipase (23-300) U/L Procalcitonin (<0.5) ng/mL HCG, Quant mIU/mL Urine Color Urine Appearance Urine pH (4.5-8.0) Ur Specific [place] (1.000-1.035) Urine Protein (Negative) Urine Glucose (UA) (Negative) g/dL Urine Ketones (NEGATIVE) Urine Occult Blood (Negative) Urine Nitrate (Negative) Urine Bilirubin (NEGATIVE) Urine Urobilinogen (0.2) E.U./dL Ur Leukocyte Esterase (NEGATIVE) Urine RBC (0-5/HPF) Urine WBC (0-5/HPF) Urine Bacteria (None) Ur Culture Indicated? Chlamy pneumoniae PCR Not detected (Not Detect) Adenovirus (PCR) Not detected (Not Detect) B. pertussis DNA (PCR) Not detected (Not Detecte) B.parapertussis DNA PCR Not detected (Not Detecte) Coronavirus OC43 (PCR) Not detected (Not Detect) Coronavirus HKU1 (PCR) Not detected (Not Detect) Coronavirus 229E (PCR) Not detected (Not Detect) SARS-CoV-2 (PCR) Not detected (Negative) Coronavirus NL63 (PCR) Not detected (Not Detect) Monoscreen (Negative) Human Metapneumovir PCR Not detected (Not Detect) Influenza Type A (PCR) Not detected (Not Detect) Influenza Type B (PCR) Not detected (Not Detect) M. pneumoniae (PCR) Not detected (Not Detect) Parainfluenza 1 (PCR) Not detected (Not Detect) Parainfluenza 2 (PCR) Not detected (Not Detect) Parainfluenza 3 (PCR) Not detected (Not Detect) Parainfluenza 4 (PCR) Not detected (Not Detect) RSV (PCR) Not detected (Not Detect) Entero/Rhino (PCR) Not detected (Not Detect) Point of Care Testing Test Results Negative Urine Dip Bedside Urine Glucose Negative Bedside Urine Bilirubin - Negative Bedside Urine Ketone - Negative Urine Specific [place] 1.01 Bedside Urine Occult Blood - Negative Bedside Urine pH 6 Bedside Urine Protein - Negative Bedside Urine Urobilinogen - Negative Bedside Urine Nitrite - Negative Bedside Urine Leukocytes - Negative Esterase MDM Narrative Medical decision making narrative: Patient is a 20-year-old female presenting to the emergency department today with her mother for an evaluation of a fever that began 6 days ago. To consider strep pharyngitis versus appendicitis versus pneumonia versus atelectasis versus urinary tract infection. Chest x-ray and CT of the abdomen pelvis with IV contrast ordered. AST and ALT elevated from 195 and 115 respectively on 01/10/2021 to 389 and 400 today. Additionally alkaline phosphatase increased from 65 on 01/10/21 to 228 today. Patient started on 4.5 g of IV Zosyn in the emergency room. Complete abdominal ultrasound ordered. <Anaya Keys, DO - Last Filed: 01/14/21 03:10> Lab Data Labs: Lab Results 01/13/21 01/13/21 01/13/21 Range/Units 16:56 18:50 18:50 WBC 7.5 (4.5-11.0) X10^3/uL RBC 4.57 (4.0-5.2) X10^6/uL Hgb 13.3 (12.0-16.0) g/dL Hct 39.3 (36-46) % MCV 86.1 (80-100) fL MCH 29.1 (26-34) PG MCHC 33.8 (30-36) % RDW 13.4 (11.6-14.8) % Plt Count 195 (150-400) X10^3/uL Neut % (Auto) Not Reportable Lymph % (Auto) Not Reportable [place] % (Auto) Not Reportable Eos % (Auto) Not Reportable Baso % (Auto) Not Reportable Lymph # (Auto) Not Reportable [place] # (Auto) Not Reportable Baso # (Auto) Not Reportable Total Counted 100 Seg Neutrophils % 29.0 L (38-70) % Band Neutrophils % 5.0 (3-7) % Lymphocytes % (Manual) 18.0 L (25-45) % Atypical Lymphs % 44.0 H ( - 0) % Monocytes % (Manual) 2.0 (2-11) % Eosinophils % (Manual) 2.0 (2-4) % Neutrophils # (Manual) 2550 L (3579-0214) /uL RBC Morphology Normal morphology D-Dimer (<230) ng/mL Sodium 135 L (137-145) mmol/L Potassium 3.8 (3.4-5.1) mmol/L Chloride 100 (98-107) mmol/L Carbon Dioxide 28 (22-32) mmol/L BUN 7 (7-17) mg/dL Creatinine 0.68 (0.52-1.04) mg/dL Estimated GFR > 60.0 (>60) mL/min BUN/Creatinine Ratio 10.3 (6-22) Glucose 106 H (70-100) mg/dL Lactate (0.7-2.1) mmol/L Calcium 8.9 (8.4-10.2) mg/dL Total Bilirubin 1.5 H (0.2-1.3) mg/dL AST 389 H (14-36) IU/L ALT 400 H (<35) IU/L Alkaline Phosphatase 228 H D (38-126) U/L Total Protein 7.4 (6.3-8.2) g/dL Albumin 3.9 (3.5-5.0) g/dL Globulin 3.5 (1.7-4.1) g/dL Albumin/Globulin Ratio 1.1 (1.0-2.8) Lipase 55 (23-300) U/L Procalcitonin (<0.5) ng/mL HCG, Quant mIU/mL Urine Color Urine Appearance Urine pH (4.5-8.0) Ur Specific [place] (1.000-1.035) Urine Protein (Negative) Urine Glucose (UA) (Negative) g/dL Urine Ketones (NEGATIVE) Urine Occult Blood (Negative) Urine Nitrate (Negative) Urine Bilirubin (NEGATIVE) Urine Urobilinogen (0.2) E.U./dL Ur Leukocyte Esterase (NEGATIVE) Urine RBC (0-5/HPF) Urine WBC (0-5/HPF) Urine Bacteria (None) Ur Culture Indicated? Chlamy pneumoniae PCR (Not Detect) Adenovirus (PCR) (Not Detect) B. pertussis DNA (PCR) (Not Detecte) B.parapertussis DNA PCR (Not Detecte) Coronavirus OC43 (PCR) (Not Detect) Coronavirus HKU1 (PCR) (Not Detect) Coronavirus 229E (PCR) (Not Detect) SARS-CoV-2 (PCR) Negative (Negative) Coronavirus NL63 (PCR) (Not Detect) Monoscreen (Negative) Human Metapneumovir PCR (Not Detect) Influenza Type A (PCR) (Not Detect) Influenza Type B (PCR) (Not Detect) M. pneumoniae (PCR) (Not Detect) Parainfluenza 1 (PCR) (Not Detect) Parainfluenza 2 (PCR) (Not Detect) Parainfluenza 3 (PCR) (Not Detect) Parainfluenza 4 (PCR) (Not Detect) RSV (PCR) (Not Detect) Entero/Rhino (PCR) (Not Detect) 01/13/21 01/13/21 01/13/21 Range/Units 18:50 18:50 18:50 WBC (4.5-11.0) X10^3/uL RBC (4.0-5.2) X10^6/uL Hgb (12.0-16.0) g/dL Hct (36-46) % MCV (80-100) fL MCH (26-34) PG MCHC (30-36) % RDW (11.6-14.8) % Plt Count (150-400) X10^3/uL Neut % (Auto) Lymph % (Auto) [place] % (Auto) Eos % (Auto) Baso % (Auto) Lymph # (Auto) [place] # (Auto) Baso # (Auto) Total Counted Seg Neutrophils % (38-70) % Band Neutrophils % (3-7) % Lymphocytes % (Manual) (25-45) % Atypical Lymphs % ( - 0) % Monocytes % (Manual) (2-11) % Eosinophils % (Manual) (2-4) % Neutrophils # (Manual) (2837-9449) /uL RBC Morphology D-Dimer (<230) ng/mL Sodium (137-145) mmol/L Potassium (3.4-5.1) mmol/L Chloride (98-107) mmol/L Carbon Dioxide (22-32) mmol/L BUN (7-17) mg/dL Creatinine (0.52-1.04) mg/dL Estimated GFR (>60) mL/min BUN/Creatinine Ratio (6-22) Glucose (70-100) mg/dL Lactate 1.2 (0.7-2.1) mmol/L Calcium (8.4-10.2) mg/dL Total Bilirubin (0.2-1.3) mg/dL AST (14-36) IU/L ALT (<35) IU/L Alkaline Phosphatase (38-126) U/L Total Protein (6.3-8.2) g/dL Albumin (3.5-5.0) g/dL Globulin (1.7-4.1) g/dL Albumin/Globulin Ratio (1.0-2.8) Lipase (23-300) U/L Procalcitonin 0.36 (<0.5) ng/mL HCG, Quant < 2.4 mIU/mL Urine Color Urine Appearance Urine pH (4.5-8.0) Ur Specific [place] (1.000-1.035) Urine Protein (Negative) Urine Glucose (UA) (Negative) g/dL Urine Ketones (NEGATIVE) Urine Occult Blood (Negative) Urine Nitrate (Negative) Urine Bilirubin (NEGATIVE) Urine Urobilinogen (0.2) E.U./dL Ur Leukocyte Esterase (NEGATIVE) Urine RBC (0-5/HPF) Urine WBC (0-5/HPF) Urine Bacteria (None) Ur Culture Indicated? Chlamy pneumoniae PCR (Not Detect) Adenovirus (PCR) (Not Detect) B. pertussis DNA (PCR) (Not Detecte) B.parapertussis DNA PCR (Not Detecte) Coronavirus OC43 (PCR) (Not Detect) Coronavirus HKU1 (PCR) (Not Detect) Coronavirus 229E (PCR) (Not Detect) SARS-CoV-2 (PCR) (Negative) Coronavirus NL63 (PCR) (Not Detect) Monoscreen (Negative) Human Metapneumovir PCR (Not Detect) Influenza Type A (PCR) (Not Detect) Influenza Type B (PCR) (Not Detect) M. pneumoniae (PCR) (Not Detect) Parainfluenza 1 (PCR) (Not Detect) Parainfluenza 2 (PCR) (Not Detect) Parainfluenza 3 (PCR) (Not Detect) Parainfluenza 4 (PCR) (Not Detect) RSV (PCR) (Not Detect) Entero/Rhino (PCR) (Not Detect) 01/13/21 01/13/21 01/13/21 Range/Units 18:50 18:50 20:30 WBC (4.5-11.0) X10^3/uL RBC (4.0-5.2) X10^6/uL Hgb (12.0-16.0) g/dL Hct (36-46) % MCV (80-100) fL MCH (26-34) PG MCHC (30-36) % RDW (11.6-14.8) % Plt Count (150-400) X10^3/uL Neut % (Auto) Lymph % (Auto) [place] % (Auto) Eos % (Auto) Baso % (Auto) Lymph # (Auto) [place] # (Auto) Baso # (Auto) Total Counted Seg Neutrophils % (38-70) % Band Neutrophils % (3-7) % Lymphocytes % (Manual) (25-45) % Atypical Lymphs % ( - 0) % Monocytes % (Manual) (2-11) % Eosinophils % (Manual) (2-4) % Neutrophils # (Manual) (0521-0489) /uL RBC Morphology D-Dimer 2661 H (<230) ng/mL Sodium (137-145) mmol/L Potassium (3.4-5.1) mmol/L Chloride (98-107) mmol/L Carbon Dioxide (22-32) mmol/L BUN (7-17) mg/dL Creatinine (0.52-1.04) mg/dL Estimated GFR (>60) mL/min BUN/Creatinine Ratio (6-22) Glucose (70-100) mg/dL Lactate (0.7-2.1) mmol/L Calcium (8.4-10.2) mg/dL Total Bilirubin (0.2-1.3) mg/dL AST (14-36) IU/L ALT (<35) IU/L Alkaline Phosphatase (38-126) U/L Total Protein (6.3-8.2) g/dL Albumin (3.5-5.0) g/dL Globulin (1.7-4.1) g/dL Albumin/Globulin Ratio (1.0-2.8) Lipase (23-300) U/L Procalcitonin (<0.5) ng/mL HCG, Quant mIU/mL Urine Color Yellow Urine Appearance Clear Urine pH 6.5 (4.5-8.0) Ur Specific [place] <=1.005 (1.000-1.035) Urine Protein Negative (Negative) Urine Glucose (UA) Negative (Negative) g/dL Urine Ketones Negative (NEGATIVE) Urine Occult Blood Negative (Negative) Urine Nitrate Negative (Negative) Urine Bilirubin Negative (NEGATIVE) Urine Urobilinogen 0.2 (0.2) E.U./dL Ur Leukocyte Esterase Trace H (NEGATIVE) Urine RBC None seen (0-5/HPF) Urine WBC None seen (0-5/HPF) Urine Bacteria Occasional (0-1) (None) Ur Culture Indicated? Specimen cultured Chlamy pneumoniae PCR (Not Detect) Adenovirus (PCR) (Not Detect) B. pertussis DNA (PCR) (Not Detecte) B.parapertussis DNA PCR (Not Detecte) Coronavirus OC43 (PCR) (Not Detect) Coronavirus HKU1 (PCR) (Not Detect) Coronavirus 229E (PCR) (Not Detect) SARS-CoV-2 (PCR) (Negative) Coronavirus NL63 (PCR) (Not Detect) Monoscreen Negative (Negative) Human Metapneumovir PCR (Not Detect) Influenza Type A (PCR) (Not Detect) Influenza Type B (PCR) (Not Detect) M. pneumoniae (PCR) (Not Detect) Parainfluenza 1 (PCR) (Not Detect) Parainfluenza 2 (PCR) (Not Detect) Parainfluenza 3 (PCR) (Not Detect) Parainfluenza 4 (PCR) (Not Detect) RSV (PCR) (Not Detect) Entero/Rhino (PCR) (Not Detect) 01/13/21 Range/Units 22:29 WBC (4.5-11.0) X10^3/uL RBC (4.0-5.2) X10^6/uL Hgb (12.0-16.0) g/dL Hct (36-46) % MCV (80-100) fL MCH (26-34) PG MCHC (30-36) % RDW (11.6-14.8) % Plt Count (150-400) X10^3/uL Neut % (Auto) Lymph % (Auto) [place] % (Auto) Eos % (Auto) Baso % (Auto) Lymph # (Auto) [place] # (Auto) Baso # (Auto) Total Counted Seg Neutrophils % (38-70) % Band Neutrophils % (3-7) % Lymphocytes % (Manual) (25-45) % Atypical Lymphs % ( - 0) % Monocytes % (Manual) (2-11) % Eosinophils % (Manual) (2-4) % Neutrophils # (Manual) (4152-2405) /uL RBC Morphology D-Dimer (<230) ng/mL Sodium (137-145) mmol/L Potassium (3.4-5.1) mmol/L Chloride (98-107) mmol/L Carbon Dioxide (22-32) mmol/L BUN (7-17) mg/dL Creatinine (0.52-1.04) mg/dL Estimated GFR (>60) mL/min BUN/Creatinine Ratio (6-22) Glucose (70-100) mg/dL Lactate (0.7-2.1) mmol/L Calcium (8.4-10.2) mg/dL Total Bilirubin (0.2-1.3) mg/dL AST (14-36) IU/L ALT (<35) IU/L Alkaline Phosphatase (38-126) U/L Total Protein (6.3-8.2) g/dL Albumin (3.5-5.0) g/dL Globulin (1.7-4.1) g/dL Albumin/Globulin Ratio (1.0-2.8) Lipase (23-300) U/L Procalcitonin (<0.5) ng/mL HCG, Quant mIU/mL Urine Color Urine Appearance Urine pH (4.5-8.0) Ur Specific [place] (1.000-1.035) Urine Protein (Negative) Urine Glucose (UA) (Negative) g/dL Urine Ketones (NEGATIVE) Urine Occult Blood (Negative) Urine Nitrate (Negative) Urine Bilirubin (NEGATIVE) Urine Urobilinogen (0.2) E.U./dL Ur Leukocyte Esterase (NEGATIVE) Urine RBC (0-5/HPF) Urine WBC (0-5/HPF) Urine Bacteria (None) Ur Culture Indicated? Chlamy pneumoniae PCR Not detected (Not Detect) Adenovirus (PCR) Not detected (Not Detect) B. pertussis DNA (PCR) Not detected (Not Detecte) B.parapertussis DNA PCR Not detected (Not Detecte) Coronavirus OC43 (PCR) Not detected (Not Detect) Coronavirus HKU1 (PCR) Not detected (Not Detect) Coronavirus 229E (PCR) Not detected (Not Detect) SARS-CoV-2 (PCR) Not detected (Negative) Coronavirus NL63 (PCR) Not detected (Not Detect) Monoscreen (Negative) Human Metapneumovir PCR Not detected (Not Detect) Influenza Type A (PCR) Not detected (Not Detect) Influenza Type B (PCR) Not detected (Not Detect) M. pneumoniae (PCR) Not detected (Not Detect) Parainfluenza 1 (PCR) Not detected (Not Detect) Parainfluenza 2 (PCR) Not detected (Not Detect) Parainfluenza 3 (PCR) Not detected (Not Detect) Parainfluenza 4 (PCR) Not detected (Not Detect) RSV (PCR) Not detected (Not Detect) Entero/Rhino (PCR) Not detected (Not Detect) Point of Care Testing Test Results Negative Urine Dip Bedside Urine Glucose Negative Bedside Urine Bilirubin - Negative Bedside Urine Ketone - Negative Urine Specific [place] 1.01 Bedside Urine Occult Blood - Negative Bedside Urine pH 6 Bedside Urine Protein - Negative Bedside Urine Urobilinogen - Negative Bedside Urine Nitrite - Negative Bedside Urine Leukocytes - Negative Esterase Imaging Data CT scan - abdomen/pelvis: Radiologist's Impression: [address] [address] [address] Scan Report Signed Patient: Yue Lovell MR#: [id number] : 2000 Acct:[id number] Age/Sex: 20 / F Date of Service: 01/13/21 Loc: ED Accession Number: [id number] ?? Procedure: CT abdomen pelvis w con Ordering Provider: Eliceo Nichols P.A-C PROCEDURE:? CT ABDOMEN PELVIS W CON ? INDICATIONS:? Abdominal pain ? TECHNIQUE:? After the administration of intravenous contrast, axial sections acquired from the lung bases to the pubic symphysis.? Coronal and sagittal reformats were performed.? For radiation dose reduction, the following was used:? automated exposure control, adjustment of mA and/or kV according to patient size.? ? COMPARISON:? [facility], CT, CT ABDOMEN PELVIS W CON, 06/05/2018, 20:21. ? FINDINGS:? Image quality:? Excellent.? ? Lung bases:? There is mild dependent atelectasis bilaterally. Heart:? No significant findings. ? ABDOMEN: Liver:? There is mild hypoattenuation of the liver consistent with mild fatty infiltration with relative sparing along the gallbladder fossa. Gallbladder:? Unremarkable.? ? Biliary ducts:? Unremarkable.? ? Pancreas:? Unremarkable.? ? Spleen:? Unremarkable.? ? Adrenal Glands:? Unremarkable.? ? Kidneys and Ureters:? Unremarkable.? ? ? Stomach and Bowel:? There is mild segmental bowel wall thickening and enhancement involving the proximal duodenum with associated mild fat stranding consistent with a duodenitis.? The remainder of the small and large bowel demonstrate normal caliber and wall thickness.? The appendix is normal in appearance.? There is colonic diverticulosis without acute diverticulitis. Peritoneum:? There is minimal free fluid along the duodenum tracking inferiorly along the right anterior pararenal space.? Findings are likely reactive.? A small amount of free fluid is also demonstrated in the pelvis which appears within physiologic limits.? No free air.? ? Ventral Wall: ? No hernias.? Abdominal Nodes:? No retroperitoneal or mesenteric adenopathy by size criteria.? Vessels:? Aorta and inferior vena cava are normal in size.? ? PELVIS: Pelvic Organs:? The uterus and ovaries appear within normal size limits.? ? Bladder:? Unremarkable.? ? Pelvic Nodes: No enlarged lymph nodes.? Miscellaneous: No hernias are seen. ? ? ? Bones:? Unremarkable.? ? ? IMPRESSION:? ? 1. Mild segmental bowel wall thickening and enhancement involving the proximal duodenum with associated mild fat stranding and minimal free fluid.? Findings are consistent with a nonspecific duodenitis, likely infectious or inflammatory.? No free air identified. ? ? Dictated by: Jace Chen M.D. on 01/13/2021 at 20:36 ? ? Approved by: Jace Chen M.D. on 01/13/2021 at 20:40? Chest x-ray: Radiologist's Impression: Launch?Image [address] [address] XRay Report Signed Patient: Yue Lovell MR#: [id number] : 2000 Acct:[id number] Age/Sex: 20 / F Date of Service: 01/13/21 Loc: ED Accession Number: [id number] ?? Procedure: XR chest 1V Ordering Provider: Eliceo Nichols P.A-C PROCEDURE:? XR CHEST 1V ? INDICATIONS:? Pain ? TECHNIQUE:? One view of the chest was acquired.? ? COMPARISON:? [facility], CR, XR CHEST 1V, 01/10/2021, 22:06. ? FINDINGS:? ? Surgical changes and devices:? None.? ? Lungs and pleura:? Lungs are clear.? No pleural effusions or pneumothorax.? ? Mediastinum:? Mediastinal contours appear normal.? Heart size is normal.? ? Bones and chest wall:? No suspicious bony lesions.? Overlying soft tissues appear unremarkable.? ? IMPRESSION:? ? 1.? No acute cardiopulmonary disease. ? ? ? Dictated by: Jace Chen M.D. on 01/13/2021 at 20:29 ? ? Approved by: Jace Chen M.D. on 01/13/2021 at 20:30?? [facility] Narrative Medical decision making narrative: Patient is a 20-year-old female presenting to the emergency department today with her mother for an evaluation of a fever that began 6 days ago. To consider strep pharyngitis versus appendicitis versus pneumonia versus atelectasis versus urinary tract infection. Chest x-ray and CT of the abdomen pelvis with IV contrast ordered. AST and ALT elevated from 195 and 115 respectively on 01/10/2021 to 389 and 400 today. Additionally alkaline phosphatase increased from 65 on 01/10/21 to 228 today. Patient started on 4.5 g of IV Zosyn in the emergency room. Complete abdominal ultrasound ordered. CT abdomen pelvis does show some to widen it is but seems very atypical to have such elevation in her LFTs. Abdominal ultrasound was ordered. Shows a hypoechoic area adjacent to the gallbladder but no other clear acute changes. This is an appreciated on her CT. Monospot was repeated and is negative. Hepatitis panel from the 2nd is negative. Patient has fever, positive strep C culture. Case was discussed with General surgery who recommends MRI if no other clear source is found to evaluate the hypoechoic area but does not feel patient is surgical candidate at this time. Recommends admission to Medicine. Discussed with our hospitalist Dr. Jessica MONZON who accepts. He will also add be BV on board. Agrees with current antibiotic choices. Discharge Plan Departure Patient Disposition: Admitted As Inpatient Clinical Impression: Sepsis, Hepatitis, Streptococcal sore throat Admit Date/Time: 01/14/21 00:04 Admit Provider: Obed Sprague
[2021-01-13 19:45] LABS: Lactate (Lactic Acid) 1.2 mmol/L (0.7-2.1)
[2021-01-13 19:52] LABS: Neutrophils Absolute Manual 2550 /uL (3000-5900); RBC Morphology Normal Morphology; Total Cells Counted 100
[2021-01-13] MEDS: KETOROLAC 30 MG/ML VIAL IV (19:58)
--- NOTE | 2021-01-13 20:00 | DI.US.S_ITS ---
PROCEDURE: US ABDOMEN COMPLETE INDICATIONS: PAIN TECHNIQUE: Real-time scanning was performed of the abdominal and retroperitoneal organs, with image documentation. COMPARISON: [facility], CT, CT ABDOMEN PELVIS W CON, 01/13/2021, 19:31. FINDINGS: Evaluation limited by body habitus. Liver: Liver is normal in size and increased in echogenicity consistent with fatty infiltration with an area of focal sparing along the gallbladder fossa. Gallbladder: No gallstones, gallbladder wall thickening, or pericholecystic fluid. Biliary ducts: Intrahepatic bile ducts are non-dilated. Extrahepatic bile duct caliber measures 3-4 mm. Normal is 6-7 mm or less in diameter, or 10 mm or less post-cholecystectomy. Pancreas: Visualized portions of the pancreas are sonographically normal. Pancreatic tail not well seen secondary to bowel gas. Spleen: Spleen is borderline enlarged, measuring up to 14.4 cm. Kidneys: Right kidney measures 11.0 cm long; left kidney measures 11.5 cm long. No hydronephrosis. Aorta: Visualized aorta is normal in caliber at less than 3 cm. Iliacs: Proximal common iliac arteries are normal in caliber at less than 2.5 cm. IVC: Intrahepatic inferior vena cava is patent. Miscellaneous: No free abdominal fluid. IMPRESSION: 1. No acute intra-abdominal sonographic abnormality. Specifically, no evidence of cholelithiasis or cholecystitis. 2. Increased hepatic echogenicity compatible with steatosis. There is focal sparing along the gallbladder fossa. Dictated by: Jace Chen M.D. on 01/13/2021 at 22:02 Approved by: Jace Chen M.D. on 01/13/2021 at 22:04
[2021-01-13] MEDS: PIPERACILLIN/TAZO 4.5 GM in SODIUM CHLORIDE 0.9% 100 ML 200 ML IV (20:01)
[2021-01-13 20:02] LABS: Procalcitonin 0.36 ng/mL (<0.5)
[2021-01-13 20:03] LABS: HCG Quantitative /Beta subunit < 2.4 mIU/mL
[2021-01-13 20:42] LABS: Appearance Urine UA CLEAR; Bilirubin Urine UA NEGATIVE (NEGATIVE); Color Urine UA YELLOW; Glucose Urine UA NEGATIVE (Negative); Ketones Urine UA NEGATIVE (NEGATIVE); Leukocyte Esterase Urine UA TRACE (NEGATIVE); Nitrite Urine UA NEGATIVE (Negative); Occult Blood Urine UA NEGATIVE (Negative); Protein Urine UA NEGATIVE (Negative); Specific Gravity Urine UA <=1.005 (1.000-1.035); Urobilinogen Urine UA 0.2 E.U./dL (0.2)
[2021-01-13 20:45] LABS: pH Urine UA 6.5 (4.5-8.0)
[2021-01-13] MEDS: MORPHINE 4 MG/ML INJ IV (20:50)
[2021-01-13 21:07] LABS: RBC Urine None Seen (0-5/HPF); WBC Urine None Seen (0-5/HPF)
[2021-01-13 21:08] LABS: Bacteria Urine Occasional (0-1); Culture Indicated Urine Specimen Cultured
[2021-01-13] MEDS: SODIUM CHLORIDE 0.9% 1,641 ML 547 ML IV (21:23)
[2021-01-13 21:42] LABS: Monotest Negative (Negative)
--- NOTE | 2021-01-13 23:00 | PM.HP.1 ---
History of Present Illness History of Present Illness Date Patient Seen: 01/13/21 Time Patient Seen: 23:00 Chief complaint: SORE THROAT STOMACH PAIN & HIGH FEVER Narrative: Ms. Lovell is a 20W with no PMH, taking no medications who presents with fevers, sore throat, malaise, abdominal pain, nausea, vomiting, diarrhea. She had been in her normal state of health. Approximately 2 weeks ago she developed an itchy belly rash, this has mostly resolved. Six days ago she began developing sudden onset symptoms of illness. She woke up and noted fevers >104, puffy eyes with infected sclera, back pain. She developed nausea, watery diarrhea, and vomiting. Her sore throat is quite significant. Her abdominal pain is bilateral sides and epigastric pain. She has noted shortness of breath and pain in her chest that is worse with moving, lying down, breathing. She has no sick contacts. No recent travel. She denies history of or concern for STIs. She presented to the ED three days ago where workup showed a transaminitis and throat swab showed strep C. She was discharged home. She presents back because her symptoms are worsened, primarily her chest and abdominal pain. In the ED workup was done, T-100.9, HR 90s, Pulse 20s, blood pressrue 130s/80s, sats 99% on RA. Labs notable for WBC 7.5 with 29% PMNs, Na 135, creatinine 0.68, Bili 1.5, AST/ALT 389/400, alk phos 228. Chest xray showed no acute process. CT abdomen showed segmental bowel wall thickening at the proximal duodenum consistent with nonspecific duodenitis. Abdominal ultrasound showed no acute process. She was ordered for IV fluids, zosyn, and admitted for further treatment. Patient History Family & Social History Safety & Behavioral: Feels Safe in Current Yes Environment Been Physically Hurt or No Threatened By a Person Tobacco & Substance use: Smoking Status Never smoker alcohol intake frequency holiday/special occasion Substance Use Type marijuana Meds Home Medications and Allergies Home Medications Medication Instructions Recorded Confirmed Type ibuprofen 200 mg tablet (Advil) 200 mg PO PRN #0 06/25/11 06/05/18 History ferrous sulfate 325 mg (65 mg 325 mg PO DAILY tab 02/19/18 06/05/18 History iron) tablet Allergies Allergy/AdvReac Type Severity Reaction Status Date / Time No Known Drug Allergies Allergy Verified 01/13/21 16:55 Review of Systems Review of Systems Narrative: 14 systems reviewed and negative aside from what is noted in HPI Exam Vital Signs (past 8 hours): - 01/13/21 18:40 01/13/21 19:00 01/13/21 19:23 Temperature 100.4 F H Pulse Rate 91 H 85 Blood Pressure Pulse Oximetry 97 97 01/13/21 19:45 01/13/21 20:00 01/13/21 20:30 Temperature Pulse Rate 88 73 79 Blood Pressure 133/73 123/63 Pulse Oximetry 98 97 94 01/13/21 20:45 01/13/21 20:46 01/13/21 21:00 Temperature Pulse Rate 83 80 67 Blood Pressure 101/56 L 101/56 L Pulse Oximetry 96 97 96 01/13/21 21:01 01/13/21 21:30 01/13/21 21:52 Temperature 98.1 F Pulse Rate 69 61 Blood Pressure 122/61 119/66 Pulse Oximetry 97 94 01/13/21 22:00 01/14/21 00:20 Temperature Pulse Rate 67 80 Blood Pressure 123/60 120/58 L Pulse Oximetry 98 99 Oxygen Delivery Method Room Air Narrative Exam Narrative: GEN: no acute distress HEENT: swollen, erythmatous tonsils with exudates, moist mucous membranes, scleral erythema NECK: trachea midline, no JVD CV: regular rate and rhythm, with no murmurs PULM: clear bilaterally, no wheezes, rhonchi, rales ABD: soft, nondistended, tenderness to palpation over the epigastric region and bilateral mid abdomen EXT: warm and well perfused with no edema NEURO: awake, alert, oriented, no focal deficits SKIN: faint maculopaular rash on abdomen Objective Labs Result Diagrams: 01/13/21 18:50 01/13/21 18:50 Labs: Laboratory Results - last 24 hr 01/13/21 01/13/21 01/13/21 16:56 18:50 18:50 WBC 7.5 RBC 4.57 Hgb 13.3 Hct 39.3 MCV 86.1 MCH 29.1 MCHC 33.8 RDW 13.4 Plt Count 195 Neut % (Auto) Not Reportable Lymph % (Auto) Not Reportable [place] % (Auto) Not Reportable Eos % (Auto) Not Reportable Baso % (Auto) Not Reportable Lymph # (Auto) Not Reportable [place] # (Auto) Not Reportable Baso # (Auto) Not Reportable Total Counted 100 Seg Neutrophils % 29.0 L Band Neutrophils % 5.0 Lymphocytes % (Manual) 18.0 L Atypical Lymphs % 44.0 H Monocytes % (Manual) 2.0 Eosinophils % (Manual) 2.0 Neutrophils # (Manual) 2550 L RBC Morphology Normal morphology D-Dimer Sodium 135 L Potassium 3.8 Chloride 100 Carbon Dioxide 28 BUN 7 Creatinine 0.68 Estimated GFR > 60.0 BUN/Creatinine Ratio 10.3 Glucose 106 H Lactate Calcium 8.9 Total Bilirubin 1.5 H AST 389 H ALT 400 H Alkaline Phosphatase 228 H D Total Protein 7.4 Albumin 3.9 Globulin 3.5 Albumin/Globulin Ratio 1.1 Lipase 55 Procalcitonin HCG, Quant Urine Color Urine Appearance Urine pH Ur Specific [place] Urine Protein Urine Glucose (UA) Urine Ketones Urine Occult Blood Urine Nitrate Urine Bilirubin Urine Urobilinogen Ur Leukocyte Esterase Urine RBC Urine WBC Urine Bacteria Ur Culture Indicated? Chlamy pneumoniae PCR Adenovirus (PCR) B. pertussis DNA (PCR) B.parapertussis DNA PCR Coronavirus OC43 (PCR) Coronavirus HKU1 (PCR) Coronavirus 229E (PCR) SARS-CoV-2 (PCR) Negative Coronavirus NL63 (PCR) Monoscreen Human Metapneumovir PCR Influenza Type A (PCR) Influenza Type B (PCR) M. pneumoniae (PCR) Parainfluenza 1 (PCR) Parainfluenza 2 (PCR) Parainfluenza 3 (PCR) Parainfluenza 4 (PCR) RSV (PCR) Entero/Rhino (PCR) 01/13/21 01/13/21 01/13/21 18:50 18:50 18:50 WBC RBC Hgb Hct MCV MCH MCHC RDW Plt Count Neut % (Auto) Lymph % (Auto) [place] % (Auto) Eos % (Auto) Baso % (Auto) Lymph # (Auto) [place] # (Auto) Baso # (Auto) Total Counted Seg Neutrophils % Band Neutrophils % Lymphocytes % (Manual) Atypical Lymphs % Monocytes % (Manual) Eosinophils % (Manual) Neutrophils # (Manual) RBC Morphology D-Dimer Sodium Potassium Chloride Carbon Dioxide BUN Creatinine Estimated GFR BUN/Creatinine Ratio Glucose Lactate 1.2 Calcium Total Bilirubin AST ALT Alkaline Phosphatase Total Protein Albumin Globulin Albumin/Globulin Ratio Lipase Procalcitonin 0.36 HCG, Quant < 2.4 Urine Color Urine Appearance Urine pH Ur Specific [place] Urine Protein Urine Glucose (UA) Urine Ketones Urine Occult Blood Urine Nitrate Urine Bilirubin Urine Urobilinogen Ur Leukocyte Esterase Urine RBC Urine WBC Urine Bacteria Ur Culture Indicated? Chlamy pneumoniae PCR Adenovirus (PCR) B. pertussis DNA (PCR) B.parapertussis DNA PCR Coronavirus OC43 (PCR) Coronavirus HKU1 (PCR) Coronavirus 229E (PCR) SARS-CoV-2 (PCR) Coronavirus NL63 (PCR) Monoscreen Human Metapneumovir PCR Influenza Type A (PCR) Influenza Type B (PCR) M. pneumoniae (PCR) Parainfluenza 1 (PCR) Parainfluenza 2 (PCR) Parainfluenza 3 (PCR) Parainfluenza 4 (PCR) RSV (PCR) Entero/Rhino (PCR) 01/13/21 01/13/21 01/13/21 18:50 18:50 20:30 WBC RBC Hgb Hct MCV MCH MCHC RDW Plt Count Neut % (Auto) Lymph % (Auto) [place] % (Auto) Eos % (Auto) Baso % (Auto) Lymph # (Auto) [place] # (Auto) Baso # (Auto) Total Counted Seg Neutrophils % Band Neutrophils % Lymphocytes % (Manual) Atypical Lymphs % Monocytes % (Manual) Eosinophils % (Manual) Neutrophils # (Manual) RBC Morphology D-Dimer 2661 H Sodium Potassium Chloride Carbon Dioxide BUN Creatinine Estimated GFR BUN/Creatinine Ratio Glucose Lactate Calcium Total Bilirubin AST ALT Alkaline Phosphatase Total Protein Albumin Globulin Albumin/Globulin Ratio Lipase Procalcitonin HCG, Quant Urine Color Yellow Urine Appearance Clear Urine pH 6.5 Ur Specific [place] <=1.005 Urine Protein Negative Urine Glucose (UA) Negative Urine Ketones Negative Urine Occult Blood Negative Urine Nitrate Negative Urine Bilirubin Negative Urine Urobilinogen 0.2 Ur Leukocyte Esterase Trace H Urine RBC None seen Urine WBC None seen Urine Bacteria Occasional (0-1) Ur Culture Indicated? Specimen cultured Chlamy pneumoniae PCR Adenovirus (PCR) B. pertussis DNA (PCR) B.parapertussis DNA PCR Coronavirus OC43 (PCR) Coronavirus HKU1 (PCR) Coronavirus 229E (PCR) SARS-CoV-2 (PCR) Coronavirus NL63 (PCR) Monoscreen Negative Human Metapneumovir PCR Influenza Type A (PCR) Influenza Type B (PCR) M. pneumoniae (PCR) Parainfluenza 1 (PCR) Parainfluenza 2 (PCR) Parainfluenza 3 (PCR) Parainfluenza 4 (PCR) RSV (PCR) Entero/Rhino (PCR) 01/13/21 22:29 WBC RBC Hgb Hct MCV MCH MCHC RDW Plt Count Neut % (Auto) Lymph % (Auto) [place] % (Auto) Eos % (Auto) Baso % (Auto) Lymph # (Auto) [place] # (Auto) Baso # (Auto) Total Counted Seg Neutrophils % Band Neutrophils % Lymphocytes % (Manual) Atypical Lymphs % Monocytes % (Manual) Eosinophils % (Manual) Neutrophils # (Manual) RBC Morphology D-Dimer Sodium Potassium Chloride Carbon Dioxide BUN Creatinine Estimated GFR BUN/Creatinine Ratio Glucose Lactate Calcium Total Bilirubin AST ALT Alkaline Phosphatase Total Protein Albumin Globulin Albumin/Globulin Ratio Lipase Procalcitonin HCG, Quant Urine Color Urine Appearance Urine pH Ur Specific [place] Urine Protein Urine Glucose (UA) Urine Ketones Urine Occult Blood Urine Nitrate Urine Bilirubin Urine Urobilinogen Ur Leukocyte Esterase Urine RBC Urine WBC Urine Bacteria Ur Culture Indicated? Chlamy pneumoniae PCR Not detected Adenovirus (PCR) Not detected B. pertussis DNA (PCR) Not detected B.parapertussis DNA PCR Not detected Coronavirus OC43 (PCR) Not detected Coronavirus HKU1 (PCR) Not detected Coronavirus 229E (PCR) Not detected SARS-CoV-2 (PCR) Not detected Coronavirus NL63 (PCR) Not detected Monoscreen Human Metapneumovir PCR Not detected Influenza Type A (PCR) Not detected Influenza Type B (PCR) Not detected M. pneumoniae (PCR) Not detected Parainfluenza 1 (PCR) Not detected Parainfluenza 2 (PCR) Not detected Parainfluenza 3 (PCR) Not detected Parainfluenza 4 (PCR) Not detected RSV (PCR) Not detected Entero/Rhino (PCR) Not detected Assessment & Plan Assessment & Plan narrative: Ms. Lovell is a 20W with no significant PMH who presents with fevers, abdominal pain, chest pain, shortness of breath, sore throat. 1. Strep C pharyngitis -blood cultures pending, negative to date -for now continue with antibiotics, IV ceftriaxone -patient did receive sepsis bolus in ED, but not currently septic 2. Transaminitis -differential includes viral infection, hepatic steatosis, less likely toxic shock, other infection possible such as EBV, HIV -monospot negative -hepatitis serologies negative -order EBV antibodies -order HIV antibodies and HIV RNA 3. Duodenitis -possibly incidental finding -bacterial infecion, rarely causes duodenitis, but could be possibly secondary to strep -order for maalox, protonix -IV antibiotics as above 4. Shorntess of breath, chest pain -chest xray showed no acute process -D-dimer markedly elevated -ordered for CTA for PE rule out CODE: Full Proxy: Charis Lvoell, mother I have utilized all available immediate resources to obtain, update, or review the patient's current medications. Time Spent With Patient Critical Care time: I spent a total of [] minutes of critical care time on this patient's care today; this time is exclusive of procedural time. Quality MIPS - Admit I confirm the patient?s Advance Care Plan is present, Code status is documented, Surrogate decision maker is in patient?s record [If Yes, STOP here]: Yes
[2021-01-13 23:28] LABS: Adenovirus Not Detected (Not Detect); B. parapertussis Not Detected (Not Detecte); Bordetella pertussis Not Detected (Not Detecte); Chlamydophila pneumoniae Not Detected (Not Detect); Coronavirus 229E Not Detected (Not Detect); Coronavirus HKU1 Not Detected (Not Detect); Coronavirus NL 63 Not Detected (Not Detect); Coronavirus OC43 Not Detected (Not Detect); Human Metapneumovirus Not Detected (Not Detect); Human Rhinovirus/Enterovirus Not Detected (Not Detect); Influenza A Not Detected (Not Detect); Influenza B Not Detected (Not Detect); Mycoplasma pneumoniae Not Detected (Not Detect); Parainfluenza Virus 1 Not Detected (Not Detect); Parainfluenza Virus 2 Not Detected (Not Detect); Parainfluenza Virus 3 Not Detected (Not Detect); Parainfluenza Virus 4 Not Detected (Not Detect); Respiratory Syncytial Virus Not Detected (Not Detect); SARS- CoV-2 Not Detected (Not Detecte)
[2021-01-13 23:52] LABS: D Dimer 2661 ng/mL (<230)
[2021-01-13] MEDS: cefTRIAXone 2,000 MG in SODIUM CHLORIDE 0.9% 100 ML 200 ML IV (23:56)
[2021-01-13] MEDS: PANTOPRAZOLE 40 MG VIAL IV (23:56)
[2021-01-13] MEDS: LACTATED RINGERS 1,000 ML 150 ML IV (23:56)
[2021-01-14] VITALS (35 sets, daily range): BP systolic 118–149; BP diastolic 57–85; PULSE 53–103; RESP 14–24; TEMP 36.5–38.3; O2SAT 91–99; BMI 32.5
--- NOTE | 2021-01-14 01:28 | DI.CT.S_ITS ---
PROCEDURE: CT ANGIO CHEST PE PROTOCOL INDICATIONS: shortness of breath, chest pain, elevated ddimer TECHNIQUE: After the administration of intravenous contrast, 2 mm thick sections acquired from the pulmonary apices to the posterior costophrenic angles. 3-dimensional maximum intensity projection (MIP) coronal and sagittal reformats were then acquired through the thorax. For radiation dose reduction, the following was used: automated exposure control, adjustment of mA and/or kV according to patient size. COMPARISON: [facility], CR, XR CHEST 1V, 01/13/2021, 19:17. [facility], CR, XR CHEST 1V, 01/10/2021, 22:06. [facility], CT, CT ABDOMEN PELVIS W CON, 01/13/2021, 19:31. [facility], US, US ABDOMEN COMPLETE, 01/13/2021, 21:10. FINDINGS: Image quality: Excellent. Pulmonary arteries: Pulmonary arteries are normal in size, and demonstrate no intraluminal filling defects to suggest central pulmonary embolism. Lungs and pleura: No focal infiltrates are seen. Minimal likely subpleural atelectasis can be seen involving the dependent lower lobes. No pleural effusions or pneumothorax. Central and peripheral airways are patent. Mediastinum: Heart size is normal, without pericardial effusion. There is a small amount residual thymus tissue seen, which is not regarded to be pathologic in a patient of this age. No mediastinal or hilar adenopathy. Thoracic aorta is normal in caliber and enhancement. Esophagus is normal in caliber, without a significant hiatal hernia. Bones and chest wall: No suspicious bony lesions. Ribs and thoracic spine appear intact throughout. Thyroid gland demonstrates no significant abnormality. No axillary or supraclavicular adenopathy. Abdomen: Visualized upper abdominal solid organs appear normal in the early arterial phase of enhancement. IMPRESSION: Negative for pulmonary embolism. Note: No significant discrepancy from the preliminary report. Dictated by: Elmo Ramirez M.D. on 01/14/2021 at 7:40 Approved by: Elmo Ramirez M.D. on 01/14/2021 at 7:42
[2021-01-14] MEDS: ACETAMINOPHEN 325 MG TABLET 650 MG PO ×2 (03:25→15:24)
[2021-01-14 03:43] LABS: HIV 1 & 2 Ab/Ag 4th Gen Combo NEGATIVE (NEGATIVE)
[2021-01-14 04:40] LABS: Hematocrit 34.5 % (36-46); Hemoglobin 11.7 g/dL (12.0-16.0); Mean Corpuscular Hemoglobin 29.3 PG (26-34); Mean Corpuscular Volume 86.1 fL (80-100); Platelet Count 173 X10^3/uL (150-400); Red Blood Cell Count 4.01 X10^6/uL (4.0-5.2); Red Cell Distribution Width 13.3 % (11.6-14.8)
[2021-01-14 04:41] LABS: Add Manual Diff / Slide Review YES
[2021-01-14 04:43] LABS: Alanine Aminotransferase 306 IU/L (<35); Albumin 3.2 g/dL (3.5-5.0); Albumin Globulin Ratio 1.1 (1.0-2.8); Alkaline Phosphatase 162 U/L (38-126); Aspartate Aminotransferase 263 IU/L (14-36); Bilirubin Unconjugated 0.3 mg/dL (0.0-1.1); Globulin 2.9 g/dL (1.7-4.1); HEMOLYSIS < 15 (0-50); Total Protein 6.1 g/dL (6.3-8.2)
[2021-01-14 04:44] LABS: BUN Creatinine Ratio 8.9 (6-22); Blood Urea Nitrogen 5 mg/dL (7-17); Calcium 7.9 mg/dL (8.4-10.2); Carbon Dioxide 25 mmol/L (22-32); Chloride 105 mmol/L (98-107); Estimated Glomerular Filt Rate > 60.0 mL/min (>60); Glucose 119 mg/dL (70-100); HEMOLYSIS < 15 (0-50); Potassium 3.9 mmol/L (3.4-5.1); Sodium 135 mmol/L (137-145)
[2021-01-14 07:03] LABS: Neutrophils Absolute Manual 2450 /uL (3000-5900); Platelet Estimate Adequate on smear; RBC Morphology Normal Morphology; Reactive Lymphocytes 2+; Total Cells Counted 100
--- NOTE | 2021-01-14 07:17 | PM.PN.1 ---
Subjective Subjective Date Patient Seen: 01/14/21 Interval history: She continues to have a very sore throat with a maximum temperature of 101? and mono testing that so far has with been negative. The [place] virus antigen was negative but the antibody is pending. A cytomegalovirus PCR test will also be ordered. The hepatitis infection viruses have also been negative. CT and ultrasound of the abdomen show no problems with the liver or spleen. A D-dimer was elevated at [address] angio of the chest was done today that was negative for DVT. Exam Vital Signs (past 8 hours): - 01/13/21 23:30 01/13/21 23:31 01/14/21 00:00 Temperature Pulse Rate 67 73 Respiratory Rate Blood Pressure 117/66 Pulse Oximetry 97 98 99 01/14/21 00:16 01/14/21 00:20 01/14/21 00:30 Temperature Pulse Rate 74 80 77 Respiratory Rate Blood Pressure 120/58 L 120/58 L 125/62 Pulse Oximetry 98 99 98 01/14/21 01:00 01/14/21 01:30 01/14/21 02:17 Temperature Pulse Rate 53 L 73 86 Respiratory Rate Blood Pressure 120/71 118/57 L Pulse Oximetry 98 98 93 01/14/21 02:30 01/14/21 03:00 01/14/21 03:08 Temperature Pulse Rate 75 68 63 Respiratory Rate 14 Blood Pressure 118/57 L Pulse Oximetry 95 98 99 01/14/21 03:19 01/14/21 03:28 01/14/21 03:30 Temperature 99.0 F Pulse Rate 81 61 Respiratory Rate Blood Pressure 145/82 H Pulse Oximetry 97 96 01/14/21 04:00 01/14/21 04:30 01/14/21 05:00 Temperature Pulse Rate 61 83 67 Respiratory Rate Blood Pressure Pulse Oximetry 92 96 92 01/14/21 05:30 01/14/21 06:00 01/14/21 06:30 Temperature Pulse Rate 65 72 83 Respiratory Rate Blood Pressure Pulse Oximetry 92 91 96 01/14/21 07:00 Temperature Pulse Rate 67 Respiratory Rate Blood Pressure 145/82 H Pulse Oximetry 94 Oxygen Delivery Method Room Air Narrative Exam Narrative: She is alert and oriented x3. She appears to be in mild distress from acute sore throat. Heart is regular rate and rhythm without murmur Lungs are clear to auscultation bilaterally Extremities have no ankle edema She is tender over the liver but the abdominal exam is otherwise negative. Throat has diffuse redness with exudate and tonsillar enlargement. Objective Labs Result Diagrams: 01/14/21 04:20 01/14/21 04:20 Labs: Laboratory Results - last 24 hr 01/13/21 01/13/21 01/13/21 16:56 18:50 18:50 WBC 7.5 RBC 4.57 Hgb 13.3 Hct 39.3 MCV 86.1 MCH 29.1 MCHC 33.8 RDW 13.4 Plt Count 195 Neut % (Auto) Not Reportable Lymph % (Auto) Not Reportable [place] % (Auto) Not Reportable Eos % (Auto) Not Reportable Baso % (Auto) Not Reportable Lymph # (Auto) Not Reportable [place] # (Auto) Not Reportable Baso # (Auto) Not Reportable Total Counted 100 Seg Neutrophils % 29.0 L Band Neutrophils % 5.0 Lymphocytes % (Manual) 18.0 L Atypical Lymphs % 44.0 H Monocytes % (Manual) 2.0 Eosinophils % (Manual) 2.0 Basophils % (Manual) Neutrophils # (Manual) 2550 L Reactive Lymphocytes Platelet Estimate RBC Morphology Normal morphology D-Dimer Sodium 135 L Potassium 3.8 Chloride 100 Carbon Dioxide 28 BUN 7 Creatinine 0.68 Estimated GFR > 60.0 BUN/Creatinine Ratio 10.3 Glucose 106 H Lactate Calcium 8.9 Total Bilirubin 1.5 H Conjugated Bilirubin Unconjugated Bilirubin AST 389 H ALT 400 H Alkaline Phosphatase 228 H D Total Protein 7.4 Albumin 3.9 Globulin 3.5 Albumin/Globulin Ratio 1.1 Lipase 55 Procalcitonin HCG, Quant Urine Color Urine Appearance Urine pH Ur Specific [place] Urine Protein Urine Glucose (UA) Urine Ketones Urine Occult Blood Urine Nitrate Urine Bilirubin Urine Urobilinogen Ur Leukocyte Esterase Urine RBC Urine WBC Urine Bacteria Ur Culture Indicated? Chlamy pneumoniae PCR Adenovirus (PCR) B. pertussis DNA (PCR) B.parapertussis DNA PCR Coronavirus OC43 (PCR) Coronavirus HKU1 (PCR) Coronavirus 229E (PCR) SARS-CoV-2 (PCR) Negative Coronavirus NL63 (PCR) Monoscreen HIV 1&2 Ab/P24 Ag 4thGn Human Metapneumovir PCR Influenza Type A (PCR) Influenza Type B (PCR) M. pneumoniae (PCR) Parainfluenza 1 (PCR) Parainfluenza 2 (PCR) Parainfluenza 3 (PCR) Parainfluenza 4 (PCR) RSV (PCR) Entero/Rhino (PCR) 01/13/21 01/13/21 01/13/21 18:50 18:50 18:50 WBC RBC Hgb Hct MCV MCH MCHC RDW Plt Count Neut % (Auto) Lymph % (Auto) [place] % (Auto) Eos % (Auto) Baso % (Auto) Lymph # (Auto) [place] # (Auto) Baso # (Auto) Total Counted Seg Neutrophils % Band Neutrophils % Lymphocytes % (Manual) Atypical Lymphs % Monocytes % (Manual) Eosinophils % (Manual) Basophils % (Manual) Neutrophils # (Manual) Reactive Lymphocytes Platelet Estimate RBC Morphology D-Dimer Sodium Potassium Chloride Carbon Dioxide BUN Creatinine Estimated GFR BUN/Creatinine Ratio Glucose Lactate 1.2 Calcium Total Bilirubin Conjugated Bilirubin Unconjugated Bilirubin AST ALT Alkaline Phosphatase Total Protein Albumin Globulin Albumin/Globulin Ratio Lipase Procalcitonin 0.36 HCG, Quant < 2.4 Urine Color Urine Appearance Urine pH Ur Specific [place] Urine Protein Urine Glucose (UA) Urine Ketones Urine Occult Blood Urine Nitrate Urine Bilirubin Urine Urobilinogen Ur Leukocyte Esterase Urine RBC Urine WBC Urine Bacteria Ur Culture Indicated? Chlamy pneumoniae PCR Adenovirus (PCR) B. pertussis DNA (PCR) B.parapertussis DNA PCR Coronavirus OC43 (PCR) Coronavirus HKU1 (PCR) Coronavirus 229E (PCR) SARS-CoV-2 (PCR) Coronavirus NL63 (PCR) Monoscreen HIV 1&2 Ab/P24 Ag 4thGn Human Metapneumovir PCR Influenza Type A (PCR) Influenza Type B (PCR) M. pneumoniae (PCR) Parainfluenza 1 (PCR) Parainfluenza 2 (PCR) Parainfluenza 3 (PCR) Parainfluenza 4 (PCR) RSV (PCR) Entero/Rhino (PCR) 01/13/21 01/13/21 01/13/21 18:50 18:50 18:50 WBC RBC Hgb Hct MCV MCH MCHC RDW Plt Count Neut % (Auto) Lymph % (Auto) [place] % (Auto) Eos % (Auto) Baso % (Auto) Lymph # (Auto) [place] # (Auto) Baso # (Auto) Total Counted Seg Neutrophils % Band Neutrophils % Lymphocytes % (Manual) Atypical Lymphs % Monocytes % (Manual) Eosinophils % (Manual) Basophils % (Manual) Neutrophils # (Manual) Reactive Lymphocytes Platelet Estimate RBC Morphology D-Dimer 2661 H Sodium Potassium Chloride Carbon Dioxide BUN Creatinine Estimated GFR BUN/Creatinine Ratio Glucose Lactate Calcium Total Bilirubin Conjugated Bilirubin Unconjugated Bilirubin AST ALT Alkaline Phosphatase Total Protein Albumin Globulin Albumin/Globulin Ratio Lipase Procalcitonin HCG, Quant Urine Color Urine Appearance Urine pH Ur Specific [place] Urine Protein Urine Glucose (UA) Urine Ketones Urine Occult Blood Urine Nitrate Urine Bilirubin Urine Urobilinogen Ur Leukocyte Esterase Urine RBC Urine WBC Urine Bacteria Ur Culture Indicated? Chlamy pneumoniae PCR Adenovirus (PCR) B. pertussis DNA (PCR) B.parapertussis DNA PCR Coronavirus OC43 (PCR) Coronavirus HKU1 (PCR) Coronavirus 229E (PCR) SARS-CoV-2 (PCR) Coronavirus NL63 (PCR) Monoscreen Negative HIV 1&2 Ab/P24 Ag 4thGn Negative Human Metapneumovir PCR Influenza Type A (PCR) Influenza Type B (PCR) M. pneumoniae (PCR) Parainfluenza 1 (PCR) Parainfluenza 2 (PCR) Parainfluenza 3 (PCR) Parainfluenza 4 (PCR) RSV (PCR) Entero/Rhino (PCR) 01/13/21 01/13/21 01/14/21 20:30 22:29 04:20 WBC 7.0 RBC 4.01 Hgb 11.7 L Hct 34.5 L MCV 86.1 MCH 29.3 MCHC 34.0 RDW 13.3 Plt Count 173 Neut % (Auto) Not Reportable Lymph % (Auto) Not Reportable [place] % (Auto) Not Reportable Eos % (Auto) Not Reportable Baso % (Auto) Not Reportable Lymph # (Auto) Not Reportable [place] # (Auto) Not Reportable Baso # (Auto) Not Reportable Total Counted 100 Seg Neutrophils % 35.0 L Band Neutrophils % Lymphocytes % (Manual) 45.0 Atypical Lymphs % 10.0 H Monocytes % (Manual) 7.0 Eosinophils % (Manual) 1.0 L Basophils % (Manual) 2.0 H Neutrophils # (Manual) 2450 L Reactive Lymphocytes 2+ H Platelet Estimate Adequate on smear RBC Morphology Normal morphology D-Dimer Sodium Potassium Chloride Carbon Dioxide BUN Creatinine Estimated GFR BUN/Creatinine Ratio Glucose Lactate Calcium Total Bilirubin Conjugated Bilirubin Unconjugated Bilirubin AST ALT Alkaline Phosphatase Total Protein Albumin Globulin Albumin/Globulin Ratio Lipase Procalcitonin HCG, Quant Urine Color Yellow Urine Appearance Clear Urine pH 6.5 Ur Specific [place] <=1.005 Urine Protein Negative Urine Glucose (UA) Negative Urine Ketones Negative Urine Occult Blood Negative Urine Nitrate Negative Urine Bilirubin Negative Urine Urobilinogen 0.2 Ur Leukocyte Esterase Trace H Urine RBC None seen Urine WBC None seen Urine Bacteria Occasional (0-1) Ur Culture Indicated? Specimen cultured Chlamy pneumoniae PCR Not detected Adenovirus (PCR) Not detected B. pertussis DNA (PCR) Not detected B.parapertussis DNA PCR Not detected Coronavirus OC43 (PCR) Not detected Coronavirus HKU1 (PCR) Not detected Coronavirus 229E (PCR) Not detected SARS-CoV-2 (PCR) Not detected Coronavirus NL63 (PCR) Not detected Monoscreen HIV 1&2 Ab/P24 Ag 4thGn Human Metapneumovir PCR Not detected Influenza Type A (PCR) Not detected Influenza Type B (PCR) Not detected M. pneumoniae (PCR) Not detected Parainfluenza 1 (PCR) Not detected Parainfluenza 2 (PCR) Not detected Parainfluenza 3 (PCR) Not detected Parainfluenza 4 (PCR) Not detected RSV (PCR) Not detected Entero/Rhino (PCR) Not detected 01/14/21 01/14/21 04:20 04:20 WBC RBC Hgb Hct MCV MCH MCHC RDW Plt Count Neut % (Auto) Lymph % (Auto) [place] % (Auto) Eos % (Auto) Baso % (Auto) Lymph # (Auto) [place] # (Auto) Baso # (Auto) Total Counted Seg Neutrophils % Band Neutrophils % Lymphocytes % (Manual) Atypical Lymphs % Monocytes % (Manual) Eosinophils % (Manual) Basophils % (Manual) Neutrophils # (Manual) Reactive Lymphocytes Platelet Estimate RBC Morphology D-Dimer Sodium 135 L Potassium 3.9 Chloride 105 Carbon Dioxide 25 BUN 5 L Creatinine 0.56 Estimated GFR > 60.0 BUN/Creatinine Ratio 8.9 Glucose 119 H Lactate Calcium 7.9 L Total Bilirubin 1.0 Conjugated Bilirubin 0.0 Unconjugated Bilirubin 0.3 AST 263 H ALT 306 H Alkaline Phosphatase 162 H Total Protein 6.1 L Albumin 3.2 L Globulin 2.9 Albumin/Globulin Ratio 1.1 Lipase Procalcitonin HCG, Quant Urine Color Urine Appearance Urine pH Ur Specific [place] Urine Protein Urine Glucose (UA) Urine Ketones Urine Occult Blood Urine Nitrate Urine Bilirubin Urine Urobilinogen Ur Leukocyte Esterase Urine RBC Urine WBC Urine Bacteria Ur Culture Indicated? Chlamy pneumoniae PCR Adenovirus (PCR) B. pertussis DNA (PCR) B.parapertussis DNA PCR Coronavirus OC43 (PCR) Coronavirus HKU1 (PCR) Coronavirus 229E (PCR) SARS-CoV-2 (PCR) Coronavirus NL63 (PCR) Monoscreen HIV 1&2 Ab/P24 Ag 4thGn Human Metapneumovir PCR Influenza Type A (PCR) Influenza Type B (PCR) M. pneumoniae (PCR) Parainfluenza 1 (PCR) Parainfluenza 2 (PCR) Parainfluenza 3 (PCR) Parainfluenza 4 (PCR) RSV (PCR) Entero/Rhino (PCR) PFSH Social History Smoking Status: Never smoker Assessment & Plan Assessment & Plan narrative: Ms. Lovell is a 20W with no significant PMH who presented with fevers, abdominal pain, chest pain, shortness of breath, sore throat. 1. Strep C pharyngitis -blood cultures pending, negative to date -for now continue with IV ceftriaxone -patient did receive sepsis bolus in ED, but not currently septic -Continue IVF maintenance until able to swallow well. 2. Transaminitis -01/14 AST of 263, dropping. Alkaline phos of 162, dropping. ALT of 386 dropping from 400. The bilirubin has improved from 1.5 down to 1.0. Hemoglobin is 13.3 down to 11.7. -differential includes viral infection, hepatic steatosis, less likely toxic shock, other infection possible such as EBV, HIV, CMV -monospot negative -hepatitis serologies negative -pending EBV antibodies and CMV PCR -pending HIV antibodies and HIV RNA 3. Duodenitis on CT report -possibly incidental finding -bacterial infecion, rarely causes duodenitis, but could be possibly secondary to strep -maalox, protonix -IV antibiotics as above 4. Shortness of breath, chest pain -chest xray showed no acute process -D-dimer markedly elevated -CTA of chest ruled out PE CODE: Full Proxy: tay Amado Time Spent With Patient Critical Care time: I spent a total of [] minutes of critical care time on this patient's care today; this time is exclusive of procedural time.
[2021-01-14] MEDS: PANTOPRAZOLE 40 MG VIAL IV (08:25)
[2021-01-14] MEDS: cefTRIAXone 2,000 MG in SODIUM CHLORIDE 0.9% 100 ML 200 ML IV (08:25)
[2021-01-14] MEDS: LACTATED RINGERS 1,000 ML 150 ML IV ×2 (08:35→17:29)
[2021-01-14] MEDS: ONDANSETRON 4 MG/2 ML INJ IV ×3 (09:20→21:58)
[2021-01-14] MEDS: IBUPROFEN 400 MG TABLET 800 MG PO (09:52)
--- NOTE | 2021-01-14 13:44 | PC.NURSE ---
Pt reports improvement in overall symptoms but continues to have intermittent fevers that respond to tylenol, and nausea with vomiting. Reports SOB is related only to sore throat feeling tight. Also states that body aches and pains from yesterday have resolved almost completely. Right eye lid is significantly more edematous than left but patient prefers to lay on right side in bed and doesn't spend much time up right.
--- NOTE | 2021-01-14 16:54 | PC.NURSE ---
Pt to room 210 via bed. Pt is steady on her feet. Her Mother Charis is accompanying her in the room. Oriented Pt to room, call light, bed controls, and tv controls. Pt agrees to call for assistance as needed. Dinner tray and fresh ice water provided. Pt denies nausea at this time.
[2021-01-14] MEDS: TETRACAINE/BENZOCAINE/BUTAMBEN (CETACAINE) BOTTLE 1 SPRAY TOP (17:28)
[2021-01-14] MEDS: HYDROCODONE/ACET 5/325 TABLET 1 TAB PO (17:29)
--- NOTE | 2021-01-14 21:05 | DI.CT.S_ITS ---
PROCEDURE: CT SOFT TISSUE NECK W CON INDICATIONS: 20-year-old with worsening pharyngitis TECHNIQUE: After the administration of intravenous contrast, 3.0 mm axial sections acquired from the sella to the aortic arch. Additional oblique axial 3.0 mm sections acquired through the pharynx. 3 mm thick coronal and sagittal reformats were generated. For radiation dose reduction, the following was used: automated exposure control. COMPARISON: [facility], CT, CT ANGIO CHEST PE PROTOCOL, 01/14/2021, 1:53. FINDINGS: Image quality: Excellent Lymph nodes: Bulky bilateral deep cervical and submandibular lymphadenopathy is present. Largest node on the right is a short axis 2 cm right level 2 a node, and level 2 a short axis 1.5 cm node on the left. Vessels: Visualized vasculature appears patent. Neck spaces: Bilateral palatine tonsils are edematous and swollen without evidence peritonsillar abscess. Otherwise, the oropharynx, nasopharynx, and pharynx demonstrate no mucosal lesions. The vocal cords, false vocal cords, pyriform sinuses, epiglottis, vallecula, and tongue base all appear normal. Extramucosal spaces appear unremarkable. Glands: The parotid and submandibular glands appear normal. Thyroid gland unremarkable. Miscellaneous: Visualized brain and orbits appear normal. Lung apices appear clear. Superficial soft tissues appear normal. Bones: No suspicious bony lesions. Visualized sinuses and mastoids appear unremarkable. IMPRESSION: 1. Swollen and edematous palatine tonsils consistent with history of pharyngitis. No evidence of peritonsillar abscess. 2. Bulky deep cervical and submandibular lymphadenopathy. Consider clinical follow-up to assure resolution. Approved by: Abdoulaye Nam M.D. on 01/14/2021 at 22:41
--- NOTE | 2021-01-14 21:16 | PC.NURSE ---
pt c/o increase shortness of breath, seating onthe side of the bed. pt has increase facial edema. sating at 97% on RA, lungs are extremely diminished. Dr. Sprague and ER Doctor at the bedside. waiting on RT to get here. Dr. Sprague order further testing. Pt and mom aware that if pt worsen she will need an oral airway (ventilator)
[2021-01-14] MEDS: dexAMETHasone 20 MG in SODIUM CHLORIDE 0.9% 50 ML 208 ML IV (22:04)
[2021-01-14 22:26] LABS: Fractionated Inspired Oxygen 21; HCO3 ABG 23 mmol/L (22-26); Oxygen Saturation ABG 95 % (95-100); PCO2 ABG 30.2 mmHg (35-45); PO2 ABG 67 mmHg (80-100); TCO2 ABG 24 mmol/L (21-31)
[2021-01-14] MEDS: KETOROLAC 30 MG/ML VIAL 15 MG IV (22:30)
[2021-01-14 22:40] LABS: Lactate (Lactic Acid) 2.1 mmol/L (0.7-2.1)
[2021-01-14] MEDS: AMPICILLIN/SULBACTAM 3 GM 3 GM in SODIUM CHLORIDE 0.9% 100 ML IV (23:02)
[2021-01-14] MEDS: VANCOMYCIN 2,000 MG/400 ML PIGGYBACK 200 MG IV (23:58)
[2021-01-15 00:23] LABS: Reflexed Lactate in 2 Hours Y
[2021-01-15 02:47] VITALS: O2SAT 96
[2021-01-15] MEDS: AMPICILLIN/SULBACTAM 3 GM 3 GM in SODIUM CHLORIDE 0.9% 100 ML IV ×2 (05:04→10:22)
[2021-01-15 05:54] VITALS: BP 135/78; PULSE 85; RESP 16; TEMP 36.2; O2SAT 94
[2021-01-15 06:35] VITALS: O2SAT 96
[2021-01-15 07:44] VITALS: O2SAT 97
[2021-01-15 10:00] VITALS: BP 125/84; PULSE 104; RESP 17; TEMP 38.1; O2SAT 96
[2021-01-15] MEDS: PANTOPRAZOLE 40 MG VIAL IV (10:22)
--- NOTE | 2021-01-15 10:49 | CM.DANOTE ---
DCP: Case received, EMR reviewed and met with patient. Mother, Charis, was also at bedside. Introduced self and role. Was able to obtain information regarding patient's history prior to her hospitalization. DCP assessment completed with information currently available. Patient is a 20 year old female who admited yesterday morning to the care of the hospitalist team. PCP: None, as of yet, had Dr. Devine, crosstie inspector at one time. Payer: No medical insurance. Patient came to the hospital secondary to her having a fever and difficulty with swallowing. Patient was diagnosed with strep pharyngitis. She is here for IV antibiotics and steroids. Met with patient in her room. She is pleasant, alert and oriented. Her mother was in her room. Patient is independent at her baseline. She works at , and lives with her mother here in [place]. Asked her if she has medical insurance, and she stated that she doesn't, have been trying to get it through her work. She has no current provider, she used to see crosstie inspector, Dr. Terrazas, when she was younger. Discussed some resources at [facility] of them taking new providers, but patient will need to get established with insurance if she can. She was asking for a female PCP. Sent a message via email to the admission change group regarding her insurance situation. It is uncertain if she will qualify for [employer] versus [employer] application. P: Patient is discharging home today. Lindsay Kyle RN/Draw Fire Operator Discharge Planning/Care Management CM Discharge Assessment Start: 01/15/21 10:47 Freq: Status: Active Protocol: Document 01/15/21 10:48 (Rec: 01/15/21 10:48 [id number]) Discharge Planning Assessment Assigned Diesel Power Mechanic Lindsay Kyle RN/Draw Fire Operator Advance Directives? No History Provided By Patient,Parents,Medical Record Prior Living Arrangements House Household Members family Type of transporation used prior to Drives own vehicle admit Independent with ADL's Yes Is patient alert and oriented? Yes Caregiver for Another No Barriers to Discharge No Discharge Plan Home Transportation Arrangement Mother Referrals Initiated None needed Review Status In Process Next Review Type Continued Stay Review
[2021-01-15] MEDS: KETOROLAC 30 MG/ML VIAL 15 MG IV (11:42)
[2021-01-15] MEDS: BENZOCAINE/MENTHOL 1 LOZ PKT 1 EACH PO (11:43)
[2021-01-15 12:07] LABS: EBV Ab VCA, IgM >160.0 U/mL (0.0-35.9)
[2021-01-15 13:28] VITALS: BP 138/71; PULSE 60; RESP 18; TEMP 37.7; O2SAT 95
--- NOTE | 2021-01-15 15:59 | P.DS_ITS ---
History of Present Illness History of Present Illness Chief complaint: SORE THROAT STOMACH PAIN & HIGH FEVER Narrative: Ms. Lovell is a 20W with no PMH, taking no medications who presents with fevers, sore throat, malaise, abdominal pain, nausea, vomiting, diarrhea. She had been in her normal state of health. Approximately 2 weeks ago she developed an itchy belly rash, this has mostly resolved. Six days ago she began developing sudden onset symptoms of illness. She woke up and noted fevers >104, puffy eyes with infected sclera, back pain. She developed nausea, watery diarrhea, and vomiting. Her sore throat is quite significant. Her abdominal pain is bilateral sides and epigastric pain. She has noted shortness of breath and pain in her chest that is worse with moving, lying down, breathing. She has no sick contacts. No recent travel. She denies history of or concern for STIs. She presented to the ED three days ago where workup showed a transaminitis and throat swab showed strep C. She was discharged home. She presents back because her symptoms are worsened, primarily her chest and abdominal pain. In the ED workup was done, T-100.9, HR 90s, Pulse 20s, blood pressrue 130s/80s, sats 99% on RA. Labs notable for WBC 7.5 with 29% PMNs, Na 135, creatinine 0.68, Bili 1.5, AST/ALT 389/400, alk phos 228. Chest xray showed no acute process. CT abdomen showed segmental bowel wall thickening at the proximal duodenum consistent with nonspecific duodenitis. Abdominal ultrasound showed no acute process. She was ordered for IV fluids, zosyn, and admitted for further treatment. Discharge Providers Provider Date of admission: 01/14/21 00:04 Discharge Date: 01/15/21 Discharge provider: Jeanmarie Lau MD Summary Hospital Course Discharge Diagnosis: 1. Acute pharyngitis, group C strep 2. Likely acute infectious mononucleosis Patient was admitted and treated with Unasyn for severe pharyngitis. Throat cultures grew group C strep. In addition her admission CBC showed mild leukopenia with WBC 3.9 as well as 47% lymphocytes and 2% atypical lymphocytes on manual differential. In addition she had mild thrombocytopenia with platelet s of 135. Overall findings were consistent with preceding viral syndrome which would be most likely [place] virus in her age group. Patient did get 1 dose of dexamethasone IV last night due to difficulty breathing associated with increased throat pain although has had no signs of airway obstruction. Today she is doing completely better with ability to talk and swallow normally. And fever appears to be going away. Initial Monospot was negative. [place] virus IgM antibody pending. She may need to have EBV antibody repeated in a couple of weeks. CMV pending. Also HIV antibody and antigen were negative and HIV PCR pending but patient has no risk factors. Status at Discharge Cognitive/behavioral status at discharge: oriented Functional status at discharge: independent ambulation Overall status at discharge: patient is progressing back to baseline Exam Vital Signs (past 8 hours): - 01/15/21 10:00 01/15/21 13:28 Temperature 100.6 F H 99.8 F H Pulse Rate 104 H 60 Respiratory Rate 17 18 Blood Pressure 125/84 138/71 Pulse Oximetry 96 95 Oxygen Delivery Method Room Air Oxygen Flow Rate 0 Narrative Exam Narrative: General: Alert and pleasant female in minimal distress Oropharynx: Moderately swollen inflamed tonsils without evidence of any airway obstruction Neck: Diffuse anterior and posterior adenopathy Abdomen: Nontender, no splenomegaly Objective Labs Result Diagrams: 01/14/21 04:20 01/14/21 04:20 Labs: Laboratory Results - last 24 hr 01/13/21 01/14/21 01/14/21 18:50 21:40 22:15 ABG pH 7.50 H ABG pCO2 30.2 L ABG pO2 67 L ABG HCO3 23 ABG Total CO2 24 ABG O2 Saturation 95 ABG Base Excess 0.0 FiO2 21 Lactate 2.1 EBV Capsid Ag IgM Ab >160.0 H [facility] Social History household members: family Smoking Status: Never smoker Discharge Plan Discharge Plan Patient Disposition: Home Provider Discharge Comment: You were treated for strep throat with likely infectious mono. Finish antibiotics as prescribed. You will need to rest and take it easy for the next couple of weeks. Blood tests are pending for EBV (mono), CMV and HIV RNA. You may want to have mono antibody testing repeated in 2 weeks if initial testing remains negative. Establish with PCP. Discharge orders & Medications Prescriptions: New acetaminophen 325 mg Tablet 650 mg PO Q6HR PRN (Reason: Fever/Mild Pain (1-3)) Qty: 1 RF: 0 amoxicillin-pot clavulanate [Augmentin] 875-125 mg tablet 1 tab PO Q12H 9 Days Qty: 18 RF: 0 Changed ibuprofen [Advil] 200 MG tablet 400 mg PO Q6H PRN (Reason: fever or pain) Qty: 1 RF: 0 Diet/Activity/Treatments Diet: Diet as Tolerated Visit Report/Discharge Packet Instructions: DI for Mononucleosis-Adult, DI for Strep Throat Stand Alone Forms: Work/Release Restrictions Discharge Data Attending Provider: Obed Sprague VTE Deep Vein Thrombosis/Pulmonary Embolism Present on Admission: No
--- NOTE | 2021-01-15 15:59 | PC.NURSE ---
Discharge to home. Pt verbalized understanding of all d/c instructions. Scripts sent to [facility]. 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 IV Removed. Tele removed. Pt dressed and escorted out via w/c to personal vehicle. Pt left in stable condition with all personal belongings.
[2021-01-16 18:03] LABS: CMV DNA, Quant Real Time PCR Negative (Negative)
[2021-01-22 10:56] LABS: HIV-1 RNA by PCR <40 copies/mL (.)
== END 2021-01-15 14:00 | disposition home or self-care (01) ==
LOC: ED 23:08 → AC 01-14 06:05
PROVIDERS: Emergency Medicine; Family Medicine; Physician Assistant; Admitting Provider Internal Medicine; Emergency Provider Emergency Medicine; Referring Provider Emergency Medicine; Visit Provider Internal Medicine
DX: J02.0 Streptococcal pharyngitis (principal); R10.13 Epigastric pain; R07.9 Chest pain, unspecified; R50.9 Fever, unspecified; R06.02 Shortness of breath; R19.7 Diarrhea, unspecified; R74.01 Elevation of levels of liver transaminase levels; Z20.822 Contact with and (suspected) exposure to COVID-19
CPT/HCPCS: 36415; 36600; 70491; 71045; 71275; 74177; 76700; 80048; 80053; 80076; 81001; 81003; 81025; 82805; 83605; 83690; 84145; 84702; 85007; 85025; 85379; 86318; 86665; 87040; 87086; 87389; 87497; 87536; 87633; 87635; 93005; 93010; 94762; 96361; 96365; 96366; 96367; 96375; 96376; 99285; C9803; G0378; C9113; J0295; J0696; J1100; J1885; J2270; J2405; J2543; Q9967

== ENCOUNTER 2021-01-18 16:09 | Emergency (ER) | payer OTHER, SELFPAY ==
[2021-01-14 16:00] VITALS: BMI 32.5
[2021-01-18 16:25] VITALS: BP 126/75; PULSE 103; RESP 20; TEMP 36.2; O2SAT 99; BMI 31.7
--- NOTE | 2021-01-18 18:24 | ED_ITS ---
HPI - URI/Sore Throat General Chief Complaint: Upper Respiratory Symptoms Stated Complaint: fever, pain Time Seen by Provider: 01/18/21 18:07 Source: patient Mode of arrival: Ambulatory Limitations: no limitations History of Present Illness HPI Narrative: 20-year-old female nonsmoker with recent hospitalization for sepsis, streptococcal pharyngitis and elevated LFTs presents with worsening throat pain. She has been taking Tylenol and Motrin with little help. She has had occasional fevers as high as 100.6. She has significant pain and difficulty swallowing but is keeping liquids and her antibiotics down. She has been taking her Augmentin as prescribed. She is nauseated but has no vomiting. She denies any chest pain or shortness of breath. She denies any abdominal pain dysuria, frequency or urgency. She had throat culture demonstrating strep C, scan of the throat showed no discernible abscess Related Data Previous Rx's Medication Instructions Recorded acetaminophen 325 mg tablet 650 mg PO Q6HR PRN #1 tab 01/15/21 amoxicillin 875 mg-potassium 1 tab PO Q12H 9 Days #18 tab 01/15/21 clavulanate 125 mg tablet (Augmentin) ibuprofen 200 mg tablet (Advil) 400 mg PO Q6H PRN #1 tab 01/15/21 hydrocodone 5 mg-acetaminophen 325 1 tab PO Q4-6H PRN #10 tab 01/18/21 mg tablet ketorolac 10 mg tablet 10 mg PO Q6H PRN #14 tab 01/18/21 ondansetron 4 mg disintegrating 4 mg PO TID-QID PRN #10 tab 01/18/21 tablet Allergies Allergy/AdvReac Type Severity Reaction Status Date / Time No Known Drug Allergies Allergy Verified 01/13/21 16:55 Review of Systems Review of Systems Narrative: GENERAL: See HPI HEENT: See HPI RESPIRATORY: Denies dyspnea, cough, wheezing, hemoptysis, sputum. CARDIOVASCULAR: Denies chest pain, palpitations, orthopnea, edema, GASTROINTESTINAL: Denies nausea, vomiting, abdominal pain, diarrhea, constipation, melena. : Denies dysuria, frequency, incontinence, hematuria, urinary retention. MUSCULOSKELETAL: denies weakness, joint pain, or bony pain SKIN: Denies rash, skin lesions, or other NEUROLOGIC: Denies weakness, headache, numbness, change in speech, confusion, seizures, incoordination. PSYCHIATRIC: No concerning psychosocial issues. 12 point review of systems is negative except for those stated above Patient History Social History household members: family Smoking Status: Never smoker Smoking Status: Never smoker alcohol intake frequency: holidays/special occasions only Substance Use Type: marijuana Exam Narrative Exam Narrative: GENERAL: [20 year old patient appears stated age. Well-developed patient, in mild distress. HEAD: Atraumatic. Normocephalic. EYES: Pupils equal round and reactive. Extraocular motions intact. No scleral icterus. No injection or drainage. ENT: Nose without bleeding, purulent drainage. Tonsils swollen, erythematous with exudate, no uvula pointing, no retropharyngeal fullness NECK: Trachea midline. Non tender CARDIOVASCULAR: Regular rate and rhythm without murmurs, gallops, or rubs. RESPIRATORY: Clear to auscultation. Breath sounds equal bilaterally. No wheezes, rales, or rhonchi. GASTROINTESTINAL: Abdomen soft, non-tender, nondistended. EXTREMITIES: No edema or joint tenderness. BACK: Nontender without deformity or crepitance. No flank tenderness. NEURO: AOx3. SKIN: No rash or erythema of visible areas Initial Vital Signs Initial Vital Signs: Vital Signs Temperature 97.1 F L 01/18/21 16:25 Pulse Rate 103 H 01/18/21 16:25 Respiratory Rate 20 01/18/21 16:25 Blood Pressure 126/75 01/18/21 16:25 Pulse Oximetry 99 01/18/21 16:25 Course Orders Ordered: Discontinued Medications Dexamethasone (Dexamethasone 10 Mg/Ml Vial) 10 mg PO NOW ONE Stop: 01/18/21 18:22 Last Admin: 01/18/21 18:27 Dose: 10 mg Documented by: DIANNA Ketorolac Tromethamine (Ketorolac 30 Mg/Ml Vial) 30 mg IM NOW ONE Stop: 01/18/21 18:22 Last Admin: 01/18/21 18:27 Dose: 30 mg Documented by: DIANNA Reevaluation(s) Reevaluation #1: Patient feeling much better after the above-stated therapies. Other than her throat pain she systemically feels much better than she had previously. She is tolerating orals, feels well and is requesting discharge. Based on her reassuring history and physical exam there is no indication at this time to add labs or repeat imaging. I discussed return precautions with patient and her mother and be sure this opinion. Questions have been answered to their apparent satisfaction Vital Signs Vital signs: Vital Signs - 8 hr 01/18/21 16:25 01/18/21 18:46 01/18/21 19:29 Temperature 97.1 F L Pulse Rate 103 H 84 98 H Respiratory Rate 20 16 Blood Pressure 126/75 121/80 132/78 Pulse Oximetry 99 98 99 Discharge Plan Departure Patient Disposition: Home Clinical Impression: Acute streptococcal pharyngitis Instructions: DI for Strep Throat Activity Restrictions/Additional Instructions: *You have been diagnosed with [streptococcal pharyngitis] *What to do: *Please continue to take your regular medications as directed. [ x] New medication prescriptions sent to your pharmacy: [[facility]] [ ] New medication written as a paper prescription [ ] No new medications given *Please follow up with Dr. Reilly at [facility] in 2-3 days, call for an appointment. Let them know you were seen in the Emergency Department and that we ask that you be seen in follow up. We will electronically transmit a record of today's note. *If you do not have a primary care provider please contact the [facility] line at [phone]. They will ask some questions about your medical history and help get you set up with a doctor in the community. *Return to Emergency Department if you should have any new, worsening or concerning symptoms, such as [fever greater than 101 F, shaking chills, worsening pain, persistent vomiting or other bothersome symptoms] You have been prescribed a short course of narcotic medications. These are potentially dangerous and addictive medications that should be used carefully. While on these medications you cannot drive or operate heavy machinery. Additionally, you cannot sign legal documents or perform any duties such as this. Many people get constipated on narcotic medications so it would be advisable to discuss stool softeners with the pharmacist when you grain picker your prescription. Please understand that we cannot provide further refills of narcotics or controlled substances through the ED and your pain management will need to be through your Primary Care Provider Prescriptions: New ketorolac 10 mg tablet 10 mg PO Q6H PRN (Reason: pain) Qty: 14 RF: 0 hydrocodone-acetaminophen 5-325 mg tablet 1 tab PO Q4-6H PRN (Reason: pain) Qty: 10 RF: 0 ondansetron 4 mg tablet,disintegrating 4 mg PO TID-QID PRN (Reason: nausea and vomiting) Qty: 10 RF: 0 No Action acetaminophen 325 mg Tablet 650 mg PO Q6HR PRN (Reason: Fever/Mild Pain (1-3)) Qty: 1 RF: 0 amoxicillin-pot clavulanate [Augmentin] 875-125 mg tablet 1 tab PO Q12H 9 Days Qty: 18 RF: 0 ibuprofen [Advil] 200 MG tablet 400 mg PO Q6H PRN (Reason: fever or pain) Qty: 1 RF: 0 Referrals: [facility] [Outside] Chris Reilly MD [Physician] -
[2021-01-18] MEDS: DEXAMETHASONE 10 MG/ML VIAL PO (18:27)
[2021-01-18] MEDS: KETOROLAC 30 MG/ML VIAL IM (18:27)
--- NOTE | 2021-01-18 18:34 | PC.NURSE ---
Pt w/ recent hospitalization for similar. Airway intact. Voice does appear slightly muffuled. [place]/warm/dry. Easy work of breathing. C/o pain in throat. Able to take po fluids.
[2021-01-18 18:46] VITALS: BP 121/80; PULSE 84; O2SAT 98
[2021-01-18 19:29] VITALS: BP 132/78; PULSE 98; RESP 16; O2SAT 99
== END 2021-01-18 19:55 | disposition home or self-care (01) ==
PROVIDERS: Emergency Provider Emergency Medicine
DX: J02.0 Streptococcal pharyngitis (principal); Z20.822 Contact with and (suspected) exposure to COVID-19
CPT/HCPCS: 96372; 99283; J1100; J1885

== ENCOUNTER 2021-06-25 01:56 | Emergency (ER) | payer OTHER, MEDICAID, SELFPAY ==
[2021-01-14 16:00] VITALS: BMI 32.5
--- NOTE | 2021-06-25 02:02 | ED.GENADULT ---
HPI - General Adult General Chief complaint: Recheck/Abnormal Lab/Rx Stated complaint: bleeding after tonsil surgery Time Seen by Provider: 06/25/21 01:57 History of Present Illness HPI narrative: 20-year-old female nonsmoker without significant medical history presents with her mother and a chief complaint of sudden onset bleeding from her throat. She had a tonsillectomy with Dr. Bello at [facility] on Saturday and had been in her normal state of health until this evening, perhaps 15 minutes prior to her arrival when she started coughing and then bleeding bright red blood. She has mild pain but denies any dizziness, weakness or lightheadedness. She does not take any blood thinners. She is otherwise well and free of complaint Related Data Previous Rx's Medication Instructions Recorded acetaminophen 325 mg tablet 650 mg PO Q6HR PRN #1 tab 01/15/21 ibuprofen 200 mg tablet (Advil) 400 mg PO Q6H PRN #1 tab 01/15/21 hydrocodone 5 mg-acetaminophen 325 1 tab PO Q4-6H PRN #10 tab 01/18/21 mg tablet ketorolac 10 mg tablet 10 mg PO Q6H PRN #14 tab 01/18/21 ondansetron 4 mg disintegrating 4 mg PO TID-QID PRN #10 tab 01/18/21 tablet Allergies Allergy/AdvReac Type Severity Reaction Status Date / Time No Known Drug Allergies Allergy Verified 01/13/21 16:55 Review of Systems Review of Systems Narrative: GENERAL: Denies chills, fatigue, malaise, fever, sweats. HEENT: See HPI RESPIRATORY: Denies dyspnea, cough, wheezing, hemoptysis, sputum. CARDIOVASCULAR: Denies chest pain, palpitations, orthopnea, edema, GASTROINTESTINAL: Denies nausea, vomiting, abdominal pain, diarrhea, constipation, melena. : Denies dysuria, frequency, incontinence, hematuria, urinary retention. MUSCULOSKELETAL: denies weakness, joint pain, or bony pain SKIN: Denies rash, skin lesions, or other NEUROLOGIC: Denies weakness, headache, numbness, change in speech, confusion, seizures, incoordination. PSYCHIATRIC: No concerning psychosocial issues. 12 point review of systems is negative except for those stated above Patient History Social History household members: family Smoking Status: Never smoker Smoking Status: Never smoker alcohol intake frequency: holidays/special occasions only Substance Use Type: marijuana Exam Narrative Exam Narrative: GENERAL: [20 year old patient appears stated age. Tearful, clearly not feeling well, holding a bowl with multiple tissue soaked in bright red blood HEAD: Atraumatic. Normocephalic. EYES: Pupils equal round and reactive. Extraocular motions intact. No scleral icterus. No injection or drainage. ENT: Nose without bleeding, purulent drainage. Mild to moderate bleeding noted in posterior pharynx, tonsillar beds with intact eschar NECK: Trachea midline. Non tender CARDIOVASCULAR: Regular rate and rhythm without murmurs, gallops, or rubs. RESPIRATORY: Clear to auscultation. Breath sounds equal bilaterally. No wheezes, rales, or rhonchi. GASTROINTESTINAL: Abdomen soft, non-tender, nondistended. EXTREMITIES: No edema or joint tenderness. BACK: Nontender without deformity or crepitance. No flank tenderness. NEURO: AOx3. SKIN: No rash or erythema of visible areas Initial Vital Signs Initial Vital Signs: Vital Signs Temperature 97.8 F 06/25/21 02:03 Pulse Rate 87 06/25/21 02:03 Respiratory Rate 18 06/25/21 02:03 Blood Pressure 138/85 06/25/21 02:03 Pulse Oximetry 99 06/25/21 02:03 Course Orders Ordered: ED Orders 06/25/21 02:10 COVID19 -Nasal RAPID/Pre-Proc Stat 06/25/21 03:13 CBC Auto Diff [Complete Blood Count AUTO DIFF] Stat CMP [Comprehensive Metabolic Panel] Stat Type and Screen Stat Discontinued Medications Lidocaine/Epinephrine (Lidocaine 1% W/Epi) 1 ml SUBCUT NOW ONE Stop: 06/25/21 02:06 Tranexamic Acid (Tranexamic Acid 1,000 Mg Vial) 1,000 mg MM NOW ONE Stop: 06/25/21 02:03 Last Admin: 06/25/21 02:10 Dose: 1,000 mg Documented by: SHARON Reevaluation(s) Reevaluation #1: Patient's bleeding seems to have stopped after nebulized TXA. Consultations Consultation #1: Discussed with on-call ENT (Dr. Benavidez). Okay for discharge, follow-up as previously planned, discharge instructions as previously given, return precautions Time: 04:13 Vital Signs Vital signs: Vital Signs - 8 hr 06/25/21 02:03 Temperature 97.8 F Pulse Rate 87 Respiratory Rate 18 Blood Pressure 138/85 Pulse Oximetry 99 Medical Decision Making Lab Data Result diagrams: 06/25/21 03:13 06/25/21 03:13 Labs: Lab Results 06/25/21 06/25/21 06/25/21 Range/Units 02:10 03:13 03:13 WBC 13.4 H (4.5-11.0) X10^3/uL RBC 4.73 (4.0-5.2) X10^6/uL Hgb 13.2 (12.0-16.0) g/dL Hct 39.4 (36-46) % MCV 83.2 (80-100) fL MCH 27.9 (26-34) PG MCHC 33.5 (30-36) % RDW 14.4 (11.6-14.8) % Plt Count 282 (150-400) X10^3/uL Neut % (Auto) 74.5 (50-75) % Lymph % (Auto) 17.0 L (25-40) % Bibb % (Auto) 6.8 (3-14) % Eos % (Auto) 0.9 L (2-4) % Baso % (Auto) 0.8 (0-2) % Neut # (Auto) 9900 H (4653-7214) /uL Lymph # (Auto) 2300 (1524-3734) /uL Bibb # (Auto) 900 (0-900) /uL Eos # (Auto) 100 (0-450) /uL Baso # (Auto) 100 (0-100) /uL Sodium 138 (137-145) mmol/L Potassium 3.6 (3.4-5.1) mmol/L Chloride 104 (98-107) mmol/L Carbon Dioxide 26 (22-32) mmol/L BUN 11 (7-17) mg/dL Creatinine 0.64 (0.52-1.04) mg/dL Estimated GFR > 60 (>60) mL/min BUN/Creatinine Ratio 17.2 (6-22) Glucose 86 (70-100) mg/dL Calcium 8.8 (8.4-10.2) mg/dL Total Bilirubin 0.8 (0.2-1.3) mg/dL AST 21 (14-36) IU/L ALT 19 (<35) IU/L Alkaline Phosphatase 42 (38-126) U/L Total Protein 7.5 (6.3-8.2) g/dL Albumin 4.4 (3.5-5.0) g/dL Globulin 3.1 (1.7-4.1) g/dL Albumin/Globulin Ratio 1.4 (1.0-2.8) SARS-CoV-2 (PCR) Negative (Negative) Blood Type Antibody Screen 06/25/21 Range/Units 03:13 WBC (4.5-11.0) X10^3/uL RBC (4.0-5.2) X10^6/uL Hgb (12.0-16.0) g/dL Hct (36-46) % MCV (80-100) fL MCH (26-34) PG MCHC (30-36) % RDW (11.6-14.8) % Plt Count (150-400) X10^3/uL Neut % (Auto) (50-75) % Lymph % (Auto) (25-40) % Bibb % (Auto) (3-14) % Eos % (Auto) (2-4) % Baso % (Auto) (0-2) % Neut # (Auto) (9328-2201) /uL Lymph # (Auto) (2197-7236) /uL Bibb # (Auto) (0-900) /uL Eos # (Auto) (0-450) /uL Baso # (Auto) (0-100) /uL Sodium (137-145) mmol/L Potassium (3.4-5.1) mmol/L Chloride (98-107) mmol/L Carbon Dioxide (22-32) mmol/L BUN (7-17) mg/dL Creatinine (0.52-1.04) mg/dL Estimated GFR (>60) mL/min BUN/Creatinine Ratio (6-22) Glucose (70-100) mg/dL Calcium (8.4-10.2) mg/dL Total Bilirubin (0.2-1.3) mg/dL AST (14-36) IU/L ALT (<35) IU/L Alkaline Phosphatase (38-126) U/L Total Protein (6.3-8.2) g/dL Albumin (3.5-5.0) g/dL Globulin (1.7-4.1) g/dL Albumin/Globulin Ratio (1.0-2.8) SARS-CoV-2 (PCR) (Negative) Blood Type A Positive Antibody Screen Negative MDM Narrative Medical decision making narrative: Patient with mild to moderate postoperative bleeding after tonsillectomy 2 days ago. This happened after cough, history and physical exam is very reassuring, as shards in place and minimal bleeding in the department. Bleeding has stopped for over 2 hours, blood counts stable, discussion with on-call ENT and no indication proximal is a godwin or return to the operating room. Patient given return precautions and questions answered to their apparent satisfaction Discharge Plan Departure Patient Disposition: Home Clinical Impression: Hemorrhage, tonsil, postoperative Activity Restrictions/Additional Instructions: *You have been diagnosed with [post tonsillectomy bleeding. As we discussed your history and physical exam, labs and response to therapies are very reassuring. I have discussed your case with the on-call ENT doctor that is partners with Dr. Bello and we sure the opinion that your appropriate and safe for discharge *What to do: *Please continue to take your regular medications as directed. [ ] New medication prescriptions sent to your pharmacy: [ ] [ ] New medication written as a paper prescription [x] No new medications given *Please follow up with Dr. Bello as previously planned, I will electronically transmitted a copy of today's note to his office *Return to Emergency Department if you should have any new, worsening or concerning symptoms, such as [fever greater than 101 F, shaking chills, worsening pain, persistent vomiting, recurrence of heavy bleeding or other bothersome symptoms] Prescriptions: No Action ketorolac 10 mg tablet 10 mg PO Q6H PRN (Reason: pain) Qty: 14 0RF hydrocodone-acetaminophen 5-325 mg tablet 1 tab PO Q4-6H PRN (Reason: pain) Qty: 10 0RF ondansetron 4 mg tablet,disintegrating 4 mg PO TID-QID PRN (Reason: nausea and vomiting) Qty: 10 0RF acetaminophen 325 mg Tablet 650 mg PO Q6HR PRN (Reason: Fever/Mild Pain (1-3)) Qty: 1 0RF ibuprofen [Advil] 200 MG tablet 400 mg PO Q6H PRN (Reason: fever or pain) Qty: 1 0RF Referrals: Robbin Bello MD [Physician] -
[2021-06-25 02:03] VITALS: BP 138/85; PULSE 87; RESP 18; TEMP 36.6; O2SAT 99; BMI 30.9
[2021-06-25] MEDS: TRANEXAMIC ACID 1,000 MG VIAL 1000 MG MM (02:10)
[2021-06-25 02:31] LABS: COVID19 -Nasal RAPID Negative (Negative)
[2021-06-25 03:35] LABS: Add Manual Diff / Slide Review NO; Basophils Absolute Auto 100 /uL (0-100); Basophils Percent Auto 0.8 % (0-2); Eosinophils Absolute Auto 100 /uL (0-450); Eosinophils Percent Auto 0.9 % (2-4); Hematocrit 39.4 % (36-46); Hemoglobin 13.2 g/dL (12.0-16.0); Lymphocytes Absolute Auto 2300 /uL (1100-4500); Mean Corpuscular HGB Conc 33.5 % (30-36); Mean Corpuscular Hemoglobin 27.9 PG (26-34); Mean Corpuscular Volume 83.2 fL (80-100); Monocytes Absolute Auto 900 /uL (0-900); Monocytes Percent Auto 6.8 % (3-14); Neutrophils Absolute Auto 9900 /uL (1500-7000); Neutrophils Percent Auto 74.5 % (50-75); Platelet Count 282 X10^3/uL (150-400); Red Blood Cell Count 4.73 X10^6/uL (4.0-5.2); Red Cell Distribution Width 14.4 % (11.6-14.8); White Blood Cell Count 13.4 X10^3/uL (4.5-11.0)
[2021-06-25 03:44] LABS: Alanine Aminotransferase 19 IU/L (<35); Albumin 4.4 g/dL (3.5-5.0); Albumin Globulin Ratio 1.4 (1.0-2.8); Alkaline Phosphatase 42 U/L (38-126); Aspartate Aminotransferase 21 IU/L (14-36); BUN Creatinine Ratio 17.2 (6-22); Bilirubin Total 0.8 mg/dL (0.2-1.3); Blood Urea Nitrogen 11 mg/dL (7-17); Calcium 8.8 mg/dL (8.4-10.2); Carbon Dioxide 26 mmol/L (22-32); Chloride 104 mmol/L (98-107); Estimated Glomerular Filt Rate > 60 mL/min (>60); Globulin 3.1 g/dL (1.7-4.1); Glucose 86 mg/dL (70-100); HEMOLYSIS < 15 (0-50); Potassium 3.6 mmol/L (3.4-5.1); Sodium 138 mmol/L (137-145); Total Protein 7.5 g/dL (6.3-8.2)
[2021-06-25 04:23] VITALS: BP 122/72; PULSE 66; RESP 18; O2SAT 98
== END 2021-06-25 04:25 | disposition home or self-care (01) ==
PROVIDERS: Emergency Provider Emergency Medicine
DX: J95.831 Postprocedural hemorrhage of a respiratory system organ or structure following other procedure (principal); Z20.822 Contact with and (suspected) exposure to COVID-19
CPT/HCPCS: 36415; 80053; 85025; 86850; 86900; 86901; 87635; 96372; 99283; C9803

== ENCOUNTER 2023-12-23 05:58 | Emergency (ER) | payer OTHER, SELFPAY ==
[2021-01-14 16:00] VITALS: BMI 32.5
--- NOTE | 2023-12-23 06:07 | EKG_ITS ---
[address] [address] Test Date: 2023-12-23 Pat Name: Yue Lovell Department: Room: Gender: Female [employer] Teacher: ALEN : 2000 Requested By: Order Number: [id number] Reading MD: Vijay Hutchins Measurements Intervals [place] Rate: 66 P: 39 CA: 144 QRS: 49 QRSD: 96 T: 29 QT: 416 QTc: 436 Interpretive Statements Sinus rhythm with marked sinus arrhythmia Electronically Signed On 12-25-2023 17:43:59 PDT by Vijay Hutchins
[2023-12-23 06:08] VITALS: BP 157/98; PULSE 80; RESP 22; TEMP 35.9; O2SAT 99; BMI 32.5
--- NOTE | 2023-12-23 06:22 | DI.RAD.S_ITS ---
PROCEDURE: XR CHEST 1V INDICATIONS: short of breath TECHNIQUE: One view of the chest was acquired. COMPARISON: [facility], CR, XR CHEST 1V, 01/13/2021, 19:17. FINDINGS: Surgical changes and devices: None. Lungs and pleura: Lungs are clear. No pleural effusions or pneumothorax. Mediastinum: Mediastinal contours appear normal. Heart size is normal. Bones and chest wall: No suspicious bony lesions. Overlying soft tissues appear unremarkable. IMPRESSION: No acute pulmonary process. Dictated by: Ale Zhong M.D. on 12/23/2023 at 8:40 Approved by: Ale Zhong M.D. on 12/23/2023 at 9:05
--- NOTE | 2023-12-23 06:26 | ED.ANXIETY ---
HPI - Anxiety <Alana Velázquez DO - Last Filed: 12/23/23 23:15> General Chief Complaint: Anxiety Stated Complaint: chest tightness, anxiety and feels faint Time Seen by Provider: 12/23/23 06:22 Source: patient and family Mode of arrival: Ambulatory History of Present Illness HPI narrative: Patient is a 23-year-old female with history of anxiety presents today with right if symptoms. She has for the last 3 hours had intermittent chest tightening which causes her to be nauseous and have some shortness breath. It comes quite frequently it is uncontrollable. She is to be starting a new job today at the [employer] which she is excited about. She actually does not have anxiety about this. She has some epigastric pain but no significant abdominal pain. She just can not stop shaking feels like she is having like a lump or tightening in her chest. She is able to eat apples she is managing her own secretions stuff is staying down. She has some tingling in her extremities no significant carpal pedal spasms Related Data Previous Rx's Medication Instructions Recorded acetaminophen 325 mg tablet 650 mg (2 x 325 mg) PO Q6HR PRN 01/15/21 Fever/Mild Pain (1-3) #1 tab ibuprofen 200 mg tablet (Advil) 400 mg (2 x 200 mg) PO Q6H PRN 01/15/21 fever or pain #1 tab hydrocodone 5 mg-acetaminophen 325 1 tab PO Q4-6H PRN pain #10 tabs 01/18/21 mg tablet ketorolac 10 mg tablet 10 mg PO Q6H PRN pain #14 tabs 01/18/21 ondansetron 4 mg disintegrating 4 mg PO TID-QID PRN nausea and 01/18/21 tablet vomiting #10 tabs lorazepam 1 mg tablet (Ativan) 1 mg PO BID 5 days #10 tabs 12/23/23 Allergies Allergy/AdvReac Type Severity Reaction Status Date / Time No Known Drug Allergies Allergy Verified 01/13/21 16:55 Patient History <Alana Velázquez DO - Last Filed: 12/23/23 23:15> Social History household members: family Smoking Status: Current every day smoker Smoking Status: Current every day smoker alcohol intake frequency: a few times a week Substance Use Type: marijuana Exam <Alana Velázquez DO - Last Filed: 12/23/23 23:15> Initial Vital Signs Initial Vital Signs: Vital Signs Temperature 96.7 F L 12/23/23 06:08 Pulse Rate 80 12/23/23 06:08 Respiratory Rate 22 12/23/23 06:08 Blood Pressure 157/98 H 12/23/23 06:08 Pulse Oximetry 99 12/23/23 06:08 Oxygen Delivery Method Room Air 12/23/23 06:08 GENERAL: Tearful 23-year-old female HEENT: Head atraumatic,EOMI, pupils reactive, face symmetric, moist mucous membranes CARDIOVASCULAR: Regular rate and rhythm without murmurs, rubs or gallops. RESPIRATORY: Breath sounds equal bilaterally, no wheezes rales or rhonchi. ABDOMEN: Soft, epigastric tenderness no significant right upper quadrant pain EXTREMITIES: Normal range of motion, no clubbing or edema. Neurovascularly intact NEUROLOGICAL: Alert and oriented x4.Normal gait and speech. Cranial nerves II through XII grossly intact. SKIN: Warm, dry, no laceration, no petechiae, no rashes or lesions. <Vijay Winchester, DO - Last Filed: 12/23/23 07:49> Initial Vital Signs Initial Vital Signs: Vital Signs Temperature 96.7 F L 12/23/23 06:08 Pulse Rate 80 12/23/23 06:08 Respiratory Rate 22 12/23/23 06:08 Blood Pressure 157/98 H 12/23/23 06:08 Pulse Oximetry 99 12/23/23 06:08 Oxygen Delivery Method Room Air 12/23/23 06:08 Course <Alana Velázquez DO - Last Filed: 12/23/23 23:15> Orders Ordered: Discontinued Medications Lorazepam (Lorazepam 0.5 Mg Tablet) 1 mg PO NOW ONE Stop: 12/23/23 07:09 Last Admin: 12/23/23 07:31 Dose: 1 mg Documented By: VALERIE Ondansetron HCl (Ondansetron 4 Mg/2 Ml Inj) 4 mg IV NOW ONE Stop: 12/23/23 06:23 Last Admin: 12/23/23 06:39 Dose: 4 mg Documented By: DONELL Pantoprazole Sodium (Pantoprazole 40 Mg Vial) 40 mg IV NOW ONE Stop: 12/23/23 06:23 Last Admin: 12/23/23 06:39 Dose: 40 mg Documented By: HNG Vital Signs Vital signs: Vital Signs - 8 hr 12/23/23 06:08 Temperature 96.7 F L Pulse Rate 80 Respiratory Rate 22 Blood Pressure 157/98 H Pulse Oximetry 99 Oxygen Delivery Method Room Air <Vijay Winchester DO - Last Filed: 12/23/23 07:49> Orders Ordered: Discontinued Medications Lorazepam (Lorazepam 0.5 Mg Tablet) 1 mg PO NOW ONE Stop: 12/23/23 07:09 Last Admin: 12/23/23 07:31 Dose: 1 mg Documented By: VALERIE Ondansetron HCl (Ondansetron 4 Mg/2 Ml Inj) 4 mg IV NOW ONE Stop: 12/23/23 06:23 Last Admin: 12/23/23 06:39 Dose: 4 mg Documented By: DONELL Pantoprazole Sodium (Pantoprazole 40 Mg Vial) 40 mg IV NOW ONE Stop: 12/23/23 06:23 Last Admin: 12/23/23 06:39 Dose: 40 mg Documented By: FRANCISG Vital Signs Vital signs: Vital Signs - 8 hr 12/23/23 06:08 Temperature 96.7 F L Pulse Rate 80 Respiratory Rate 22 Blood Pressure 157/98 H Pulse Oximetry 99 Oxygen Delivery Method Room Air MDM - Anxiety <Alana Velázquez DO - Last Filed: 12/23/23 23:15> Lab Data 12/23/23 06:35 12/23/23 06:35 Labs: Lab Results 12/23/23 Range/Units 06:35 WBC 13.6 H (4.5-11.0) X10^3/uL RBC 4.87 (4.0-5.2) X10^6/uL Hgb 14.8 (12.0-16.0) g/dL Hct 43.3 (36-46) % MCV 89.0 (80-100) fL MCH 30.5 (26-34) PG MCHC 34.3 (30-36) % RDW 12.9 (11.6-14.8) % Plt Count 375 (150-400) X10^3/uL Neut % (Auto) 68.7 (50-75) % Lymph % (Auto) 23.3 L (25-40) % [place] % (Auto) 5.7 (3-14) % Eos % (Auto) 1.5 L (2-4) % Baso % (Auto) 0.8 (0-2) % Neut # (Auto) 9400 H (1904-7144) /uL Lymph # (Auto) 3200 (0122-9544) /uL [place] # (Auto) 800 (0-900) /uL Eos # (Auto) 200 (0-450) /uL Baso # (Auto) 100 (0-100) /uL Sodium 138 (137-145) mmol/L Potassium 3.7 (3.4-5.1) mmol/L Chloride 105 (98-107) mmol/L Carbon Dioxide 19 L (22-32) mmol/L BUN 13 (7-17) mg/dL Creatinine 0.67 (0.52-1.04) mg/dL Estimated GFR > 60 (>60) mL/min BUN/Creatinine Ratio 19.4 (6-22) Glucose 105 H (70-100) mg/dL Calcium 10.1 (8.4-10.2) mg/dL Total Bilirubin 1.4 H (0.2-1.3) mg/dL AST 35 (14-36) IU/L ALT 49 H (<35) IU/L Alkaline Phosphatase 65 (38-126) U/L Total Protein 7.8 (6.3-8.2) g/dL Albumin 4.9 (3.5-5.0) g/dL Globulin 2.9 (1.7-4.1) g/dL Albumin/Globulin Ratio 1.7 (1.0-2.8) Lipase 48 (23-300) U/L ECG Data Interpretation: Normal sinus rhythm rate 66 UT interval 144 QRS [address] changes of ischemia MDM Narrative Medical decision making narrative: Patient is a 23-year-old female with history of anxiety presenting today with some anxiety. She is having some epigastric discomfort she is mildly tender in the region no Mtz's sign she is breathing fast and having a hard time catching her breath. She is quite tearful. Discussed with patient and mother plan. They both report that this is not a typical anxiety reaction for her she has not anxious about her new job although she has already called off of it. They agree to blood work and some medication and monitoring. May need anxiety medication if nausea and Protonix do not necessarily help. She has called off work this morning. EKG has been reviewed without ischemia abnormality Chest x-ray has been reviewed <Vijay Winchester DO - Last Filed: 12/23/23 07:49> Lab Data Labs: Lab Results 12/23/23 Range/Units 06:35 WBC 13.6 H (4.5-11.0) X10^3/uL RBC 4.87 (4.0-5.2) X10^6/uL Hgb 14.8 (12.0-16.0) g/dL Hct 43.3 (36-46) % MCV 89.0 (80-100) fL MCH 30.5 (26-34) PG MCHC 34.3 (30-36) % RDW 12.9 (11.6-14.8) % Plt Count 375 (150-400) X10^3/uL Neut % (Auto) 68.7 (50-75) % Lymph % (Auto) 23.3 L (25-40) % [place] % (Auto) 5.7 (3-14) % Eos % (Auto) 1.5 L (2-4) % Baso % (Auto) 0.8 (0-2) % Neut # (Auto) 9400 H (4323-5104) /uL Lymph # (Auto) 3200 (0118-0178) /uL [place] # (Auto) 800 (0-900) /uL Eos # (Auto) 200 (0-450) /uL Baso # (Auto) 100 (0-100) /uL Sodium 138 (137-145) mmol/L Potassium 3.7 (3.4-5.1) mmol/L Chloride 105 (98-107) mmol/L Carbon Dioxide 19 L (22-32) mmol/L BUN 13 (7-17) mg/dL Creatinine 0.67 (0.52-1.04) mg/dL Estimated GFR > 60 (>60) mL/min BUN/Creatinine Ratio 19.4 (6-22) Glucose 105 H (70-100) mg/dL Calcium 10.1 (8.4-10.2) mg/dL Total Bilirubin 1.4 H (0.2-1.3) mg/dL AST 35 (14-36) IU/L ALT 49 H (<35) IU/L Alkaline Phosphatase 65 (38-126) U/L Total Protein 7.8 (6.3-8.2) g/dL Albumin 4.9 (3.5-5.0) g/dL Globulin 2.9 (1.7-4.1) g/dL Albumin/Globulin Ratio 1.7 (1.0-2.8) Lipase 48 (23-300) U/L MDM Narrative Medical decision making narrative: Patient is a 23-year-old female with history of anxiety presenting today with some anxiety. She is having some epigastric discomfort she is mildly tender in the region no Mtz's sign she is breathing fast and having a hard time catching her breath. She is quite tearful. Discussed with patient and mother plan. They both report that this is not a typical anxiety reaction for her she has not anxious about her new job although she has already called off of it. They agree to blood work and some medication and monitoring. May need anxiety medication if nausea and Protonix do not necessarily help. She has called off work this morning. EKG has been reviewed without ischemia abnormality Chest x-ray has been reviewed 0700: Patient was signed out to me by overnight doctor, patient presented initially for chest tightness but no actual chest pain, associated with anxiety, lab work imaging unremarkable for any acute findings, on evaluation patient stating that she was feeling a little bit better but felt like she was still experiencing some minor tightness, upon re-evaluation by myself patient is speaking in full sentences protecting airway, was able to tolerate p.o. liquids and solids here, but does appear to still have tearful affect, offered Ativan, is willing to try this. We will administer and re-evaluate. 0747: Patient re-evaluated stating symptoms hour improved, has tolerated p.o. liquids and solids again, strict return precautions given patient will be safe for discharge home with outpatient follow up. Discharge Plan Departure Patient Disposition: Home Clinical Impression: Chest tightness Activity Restrictions/Additional Instructions: Please read the discharge instructions sheet carefully and bring all papers to all doctor follow-up visits, as it may contain information that your doctor may want to see. Disease processes change and evolve, if your symptoms worsen or if you develop any new symptoms that are concerning to you please return for evaluation. Your evaluation today does not show any evidence of any life-threatening/serious illnesses requiring admission to the hospital or surgery. Please follow-up with your doctor for re-evaluation in approximately 1 day. Seek immediate medical attention for any worrisome symptoms. Prescriptions: New lorazepam [Ativan] 1 mg tablet 1 mg PO BID 5 Days Qty: 10 0RF No Action ketorolac 10 mg tablet 10 mg PO Q6H PRN (Reason: pain) Qty: 14 0RF hydrocodone-acetaminophen 5-325 mg tablet 1 tab PO Q4-6H PRN (Reason: pain) Qty: 10 0RF ondansetron 4 mg tablet,disintegrating 4 mg PO TID-QID PRN (Reason: nausea and vomiting) Qty: 10 0RF acetaminophen 325 mg Tablet 650 mg PO Q6HR PRN (Reason: Fever/Mild Pain (1-3)) Qty: 1 0RF ibuprofen [Advil] 200 MG tablet 400 mg PO Q6H PRN (Reason: fever or pain) Qty: 1 0RF Referrals: Miscellaneous,Doctor, MD [Primary Care Provider] - Stand Alone Forms: Patient Portal/API
[2023-12-23 06:37] VITALS: BP 146/79; PULSE 64; O2SAT 99
[2023-12-23] MEDS: PANTOPRAZOLE 40 MG VIAL IV (06:39)
[2023-12-23] MEDS: ONDANSETRON 4 MG/2 ML INJ IV (06:39)
[2023-12-23 06:49] LABS: Add Manual Diff / Slide Review NO; Basophils Absolute Auto 100 /uL (0-100); Basophils Percent Auto 0.8 % (0-2); Eosinophils Absolute Auto 200 /uL (0-450); Eosinophils Percent Auto 1.5 % (2-4); Hematocrit 43.3 % (36-46); Hemoglobin 14.8 g/dL (12.0-16.0); Lymphocytes Absolute Auto 3200 /uL (1100-4500); Lymphocytes Percent Auto 23.3 % (25-40); Mean Corpuscular HGB Conc 34.3 % (30-36); Mean Corpuscular Hemoglobin 30.5 PG (26-34); Monocytes Absolute Auto 800 /uL (0-900); Monocytes Percent Auto 5.7 % (3-14); Neutrophils Absolute Auto 9400 /uL (1500-7000); Neutrophils Percent Auto 68.7 % (50-75); Platelet Count 375 X10^3/uL (150-400); Red Blood Cell Count 4.87 X10^6/uL (4.0-5.2); Red Cell Distribution Width 12.9 % (11.6-14.8); White Blood Cell Count 13.6 X10^3/uL (4.5-11.0)
[2023-12-23 07:00] VITALS: BP 163/78; PULSE 57; O2SAT 98
[2023-12-23 07:00] LABS: Alanine Aminotransferase 49 IU/L (<35); Albumin 4.9 g/dL (3.5-5.0); Albumin Globulin Ratio 1.7 (1.0-2.8); Alkaline Phosphatase 65 U/L (38-126); Aspartate Aminotransferase 35 IU/L (14-36); BUN Creatinine Ratio 19.4 (6-22); Bilirubin Total 1.4 mg/dL (0.2-1.3); Blood Urea Nitrogen 13 mg/dL (7-17); Calcium 10.1 mg/dL (8.4-10.2); Carbon Dioxide 19 mmol/L (22-32); Chloride 105 mmol/L (98-107); Estimated Glomerular Filt Rate > 60 mL/min (>60); Globulin 2.9 g/dL (1.7-4.1); Glucose 105 mg/dL (70-100); HEMOLYSIS < 15 (0-50); Lipase 48 U/L (23-300); Potassium 3.7 mmol/L (3.4-5.1); Sodium 138 mmol/L (137-145); Total Protein 7.8 g/dL (6.3-8.2)
[2023-12-23 07:30] VITALS: PULSE 55; O2SAT 99
[2023-12-23] MEDS: LORazepam 0.5 MG TABLET 1 MG PO (07:31)
== END 2023-12-23 08:13 | disposition home or self-care (01) ==
PROVIDERS: Emergency Medicine; Emergency Provider Student in an Organized Health Care Education/Training Program
DX: R07.9 Chest pain, unspecified (principal); F41.9 Anxiety disorder, unspecified; R10.13 Epigastric pain
CPT/HCPCS: 36415; 71045; 80053; 83690; 85025; 93005; 96374; 96375; 99284; J2405; J2470